=== PATIENT | female | born 1985 | race Caucasian/White ===

== ENCOUNTER 2018-06-23 11:37 | Outpatient (CLI) | payer OTHER, SELFPAY ==
[2018-06-23 12:52] LABS: ALT 21 U/L (12-78); AST 17 U/L (15-37); Albumin 3.9 g/dL (3.4-5.0); Alkaline Phosphatase 45 U/L (46-116); Anion Gap 7.7 mmol/L (3-11); BUN 21 mg/dL (7-18); Bilirubin, Total 0.6 mg/dL (0.2-1.0); CO2 28.3 mmol/L (21.0-32.0); CREATININE 0.85 mg/dL (0.55-1.02); Calcium 8.6 mg/dL (8.5-10.1); Chloride 103 mmol/L (98-107); Glucose 91 mg/dL (70-100); Potassium 4.1 mmol/L (3.5-5.1); Sodium 139 mmol/L (136-145); Total Protein 6.5 g/dL (6.4-8.2)
== END 2018-06-23 11:57 ==
DX: R12 Heartburn (principal); B35.1 Tinea unguium
CPT/HCPCS: 36415; 80053

== ENCOUNTER 2018-11-24 13:44 | Outpatient (REF) | payer OTHER, SELFPAY | END 2018-11-24 14:04 | LOC: LBN 13:44 | DX: R22.1 Localized swelling, mass and lump, neck (principal) | CPT/HCPCS: 87070 ==

== ENCOUNTER 2019-02-07 07:12 | Day surgery (SDC) | payer OTHER, SELFPAY ==
[2019-02-07] VITALS (7 sets, daily range): BP systolic 96–126; BP diastolic 39–73; PULSE 54–67; RESP 10–16; TEMP 36.5–36.6; O2SAT 97–100
--- NOTE | 2019-02-07 07:46 | W.PM.DSUDISC ---
Discharge Plan Disposition Patient Disposition: HOME Condition: Good Discharge Details Attending Provider: Navneet Palmer Primary Care Provider: Marycarmen Cobian Home Meds and New Rx's Prescriptions: No Action triamcinolone acetonide 0.5 % cream 1 applic TP BID Qty: 454 RF: 0 ketoconazole 2 % cream 1 applic TP BID Qty: 60 RF: 2 Adult Probiotic 3 billion cell capsule 3,000 mmu cells PO DAILY RF: 0 multivitamin [Daily Vitamin] 1 EACH tablet 1 ea PO DAILY RF: 0 Mirena 1 EACH intrauterine device 1 ea Intrauterine ONCE Qty: 1 RF: 0 Discharge Instructions Additional Instructions: see sheet Activity:: Activity as Tolerated Remove Dressings/Wound Care:: 24 hours Shower/Bathe:: 24 hours Diet:: As Tolerated DS: Diagnosis Discharge Diagnosis (1) Tonsillolith: Status: Chronic (2) Lesion of tonsil: Status: Acute
[2019-02-07] MEDS: Lactated Ringers 1,000 ML 80 ML IV (08:05)
[2019-02-07] MEDS: Oxymetazolone 0.05% SPRAY 15 ML BTL (09:20)
--- NOTE | 2019-02-07 09:27 | TONSIL_PTH ---
PATIENT: Lesli Schaeffer LOC: [facility] U#:[id number] AGE/SX: 33/F ROOM: RE02/07/[address]: Navneet Palmer DO : 1985 BED: DIS: 02/07/2019 SPEC #: [id number] RECD: 02/07/19 12:43 STATUS: QUINTIN REQ #: [id number] SHARRI: 02/07/19 09:[address]: Navneet Palmer DEPT: Surgical Specimen RECD BY: Karen Latham ENTERED: 02/07/19 12:44 SP TYPE: TONSIL OTHR DR: Marycarmen Cobian APRN Tissues: 1 - TONSIL AGE 17 & OVER 2 - TONSIL AGE 17 & OVER Procedures: GROSS AND MICRO LEVEL 3 Comments: [id number]
[2019-02-07] MEDS: oxyCODONE 5 mg/Acetaminophen 325 mg TAB PO (11:11)
--- NOTE | 2019-02-07 11:40 | ROE_ITS ---
DATE OF PROCEDURE: February 07, 2019 PREOPERATIVE DIAGNOSIS: 1. Left tonsillar superior pole lesion. 2. Chronic tonsil stones. POSTOPERATIVE DIAGNOSIS: Same. PROCEDURE: Tonsillectomy. SURGEON: Navneet Palmer D.O. ANESTHESIA: General. ESTIMATED BLOOD LOSS: 1 cc COMPLICATIONS: None. CONDITION: The patient tolerated the procedure well. FINDINGS: Left superior pole firmness, mucosal changes. INDICATIONS FOR PROCEDURE: This is a pleasant 33-year-old female who presents with a superior pole c hange to the tonsil with firmness to palpation. The decision was made forth to proceed with tonsille ctomy. She has opted to proceed with both being removed and analyzed by Pathology. Risks and compli cations were discussed in detail. Consent was placed in the Chart. PROCEDURE: Patient was brought back to the operating suite in stable condition, placed supine on the operating table, and intubated in normal fashion. The table was rotated 90 degrees. There was no deirdre dence of submucosal clefting or bifid uvula. The McIvor retractor was placed in the oral cavity and s uspended from the German stand. The right tonsil was grasped in the superior pole and medialized. Pinpo int cautery was used to develop the peritonsillar fascial plane, dissection was carried out to the up per and mid portions of the tonsil with final amputation conducted with suction cautery. There was no bleeding within the right tonsillar fossa. Next, the left tonsil was grasped in the superior pole wi th a curved Allis forceps and medialized. Pinpoint cautery was used to develop the peritonsillar fasc ial plane. Dissection was carried out in the plane in the superior and mid portion of the tonsils. Fi nal amputation was conducted with suction cautery without bleeding within left fossa, Valsalva was pe rformed without bleeding. TMJ's were checked and were free of dislocation. Gastric contents suctioned . The patient tolerated the procedure well and went to PACU in stable condition.
== END 2019-02-07 11:55 | disposition home or self-care (01) ==
PROVIDERS: Visit Provider Otolaryngology Otolaryngology/Facial Plastic Surgery
PROC: (CPT 42826; principal; 2019-02-07 08:45)
DX: J35.8 Other chronic diseases of tonsils and adenoids (principal); J35.9 Chronic disease of tonsils and adenoids, unspecified; J35.1 Hypertrophy of tonsils
CPT/HCPCS: 42826; 81025; 88304; J1100; J2250; J2405

== ENCOUNTER 2019-07-06 01:25 | Outpatient (CLI) | payer OTHER, SELFPAY ==
[2019-07-06 11:09] LABS: Absolute Basophil Count 0.04 k/cumm (0.0-0.2); Absolute Eosinophil Count 0.32 k/cumm (0.0-0.7); Absolute Lymphocyte Count 1.73 k/cumm (1.2-3.4); Basophils % 0.7; Eosinophils % 5.8; HCT 39.8 % (36.0-46.0); HGB 13.4 g/dL (12.0-15.5); Lymphocytes % 31.5; Mean Corp. HGB Concentration 33.7 g/dL (32.0-36.0); Mean Corpuscular Hemoglobin 32.8 pg (27.0-33.0); Mean Corpuscular Volume 97.5 fL (80-95); Mean Platelet Volume 10.1 fL (8.0-11.0); Monocytes % 7.3; Neutrophils % 54.7; Platelet Count 181 x1000/uL (130-400); RBC 4.08 m/cumm (4.00-5.20); RBC Distribution Width 11.3 % (11.7-14.6); White Blood Cell Count 5.49 k/cumm (4.4-10.8)
[2019-07-06 12:04] LABS: ALT 24 U/L (14-59); AST 18 U/L (15-37); Albumin 4.1 g/dL (3.4-5.0); Alkaline Phosphatase 40 U/L (46-116); Anion Gap 5.9 mmol/L (3-11); BUN 16 mg/dL (7-18); Bilirubin, Total 0.7 mg/dL (0.2-1.0); CO2 30.1 mmol/L (21.0-32.0); CREATININE 1.16 mg/dL (0.55-1.02); Calcium 8.9 mg/dL (8.5-10.1); Chloride 104 mmol/L (98-107); Estimated GFR 54.49 (mL/min/1.73m2); Glucose 86 mg/dL (74-106); Potassium 4.2 mmol/L (3.5-5.1); Sodium 140 mmol/L (136-145); TSH (W/Ref FT4) 4.02 uIU/mL (0.36-3.74); Total Protein 6.8 g/dL (6.4-8.2)
[2019-07-06 12:20] LABS: FREE T4 0.79 ng/dL (0.76-1.46)
== END 2019-07-06 01:45 ==
PROVIDERS: PCP Internal Medicine; Visit Provider Internal Medicine
DX: R50.9 Fever, unspecified (principal); J31.0 Chronic rhinitis; Z00.00 Encounter for general adult medical examination without abnormal findings
CPT/HCPCS: 36415; 80053; 84439; 84443; 85025

== ENCOUNTER 2019-07-06 14:36 | Outpatient (CLI) | payer OTHER, SELFPAY ==
--- NOTE | 2019-07-06 14:30 | DI.RAD_ITS ---
EXAM: XR SOFT TISSUE NECK INDICATION: left neck discomfort, cervicalgia, M54.2. COMPARISON: No exams were available for comparison TECHNIQUE: 2D digital imaging was performed. FINDINGS: The disc spaces are well maintained. There is no evidence of fracture or subluxation. There is some straightening of the normal cervical lordosis, which could be secondary to muscle spasm. There is n o prevertebral soft tissue swelling. The airway appears intact. The epiglottis and aryepiglottic fo lds appear normal. The visualized portions of the upper lobes appear clear. IMPRESSION: Negative soft tissue neck.
== END 2019-07-06 14:56 ==
PROVIDERS: Visit Provider Internal Medicine
DX: M54.2 Cervicalgia (principal)
CPT/HCPCS: 70360

== ENCOUNTER 2019-07-27 01:36 | Outpatient (CLI) | payer OTHER, SELFPAY ==
[2019-07-27 13:56] LABS: TSH (W/Ref FT4) 3.28 uIU/mL (0.36-3.74)
== END 2019-07-27 01:56 ==
PROVIDERS: Visit Provider Internal Medicine
DX: R79.89 Other specified abnormal findings of blood chemistry (principal)
CPT/HCPCS: 36415; 84443

== ENCOUNTER 2019-12-30 09:40 | Outpatient (CLI) | payer OTHER, SELFPAY ==
[2019-12-31 17:39] LABS: COVID-19 RT-PCR Result NEGATIVE (Negative)
== END 2019-12-30 10:00 ==
DX: Z11.59 Encounter for screening for other viral diseases (principal)
CPT/HCPCS: U0003

== ENCOUNTER 2020-01-31 12:51 | Outpatient (CLI) | payer OTHER, SELFPAY ==
[2020-02-02 07:23] LABS: COVID-19 RT-PCR Result NEGATIVE (Negative)
== END 2020-01-31 13:11 ==
DX: R11.0 Nausea (principal); Z11.59 Encounter for screening for other viral diseases
CPT/HCPCS: U0003

== ENCOUNTER 2021-07-20 12:15 | Emergency (ER) | payer OTHER, SELFPAY ==
--- NOTE | 2021-07-20 12:15 | RT.EKG_ITS ---
APPROVED REPORT Exam: Resting ECG Reason for Exam: sob/chest pain Patient Location: E HR:78 bpm ECG Measurements Heart Rate 78 AXIS RI 137 P 57 QRSd 115 QRS 69 QT 405 T 6 QTc 463 Conclusion Sinus rhythm...normal P axis, V-rate 60- 99 Nonspecific intraventricular conduction delay...QRSd >115mS, not LBBB/RBBB. Sinus. No STEMI. I have reviewed and interpreted ECG and agree with software generated interpretation.
--- NOTE | 2021-07-20 12:16 | W.ED.GENAD ---
Discharge Plan Disposition Patient Disposition: HOME Condition: Improving Discharge Details Clinical Impression: Chronic chest pain, Right-sided chest pain Primary Care Provider: Sergio Castillo ED Provider: Janet Mancilla Home Meds and New Rx's Prescriptions: Continued triamcinolone acetonide 0.5 % cream 1 applic TP BID PRN (Reason: dermatitis) Qty: 60 RF: 5 pantoprazole 20 mg tablet,delayed release (DR/EC) 20 mg PO DAILY Qty: 30 RF: 0 diphenhydramine HCl [Benadryl Allergy] 25 mg tablet 50 mg PO QHS PRNRF: 0 fexofenadine [Fiordaliza Allergy] 180 mg tablet 180 mg PO DAILY RF: 0 Mirena 1 EACH intrauterine device 1 ea Intrauterine ONCE Qty: 1 RF: 0 Discharge Instructions Instructions: Chest Pain (ED), Chronic Pain (ED) Additional Instructions: Your lab work, EKGs and imaging today is reassuring and does not note evidence of acute abnormal findings. Drink plenty of fluids and get plenty of rest. Follow-up with your primary care doctor in 1 week for reevaluation and for referral for outpatient stress test or upper endoscopy if your symptoms do not improve or worsen and are indicated for further evaluation. Return to the emergency department with any worsening or new concerning symptoms. Discharge Data Discharge Physician: Janet Mancilla Medical Decision Making 35-year-old female with a history of chronic right-sided chest pain for the past 4 years after a bronchitis infection presents with worsening right-sided chest pain while trying groceries today. EKG notes a rate of 78, sinus, no STEMI and nondiagnostic. Vitals within normal limits. Patient appears anxious but nontoxic. Her right chest is nontender to palpation without rash, trauma or cellulitis. Discussed with patient that unclear if her right-sided chest pain today is related to her chronic right-sided chest pain but for today's purposes and her pain at times worse with deep breath, will obtain screening labs, CT chest to rule out PE. She is PERC negative. We will give a dose of Pepcid, IV fluids and Toradol and reassess. Labs and imaging reviewed. Normal white blood cell count at 5. Hemoglobin 11. Normal electrolytes. Troponin negative. CT chest reviewed and negative. Repeat troponin negative. Repeat EKG unchanged. Patient reassessed and she remained improved and feels comfortable going home. Advised to follow-up with her PCP for reevaluation. Usual and customary return precautions given prior to discharge. Medical Records Medical records reviewed: Yes I reviewed the patient's medical records. Imaging Data Radiologic Study: Radiologist's impression: CTA Chest With Contrast Exam date and time: 07/20/2021 2:13 PM Age: 35 years old Clinical indication: Pain; Right-sided; Patient HX: R/O acute pe, pneumonia TECHNIQUE: Imaging protocol: Computed tomographic angiography of the chest with contrast. 3D rendering (Not supervised by radiologist): MIP and/or 3D reconstructed images were created by the technologist. Radiation optimization: All CT scans at this facility use at least one of these dose optimization techniques: automated exposure control; mA and/or kV adjustment per patient size (includes targeted exams where dose is matched to clinical indication); or iterative reconstruction. Contrast material: OMNIPAQUE 350; Contrast volume: 100 ml; Contrast route: INTRAVENOUS (IV); COMPARISON: CR XR SOFT TISSUE NECK 07/06/2019 2:49 PM FINDINGS: Pulmonary arteries: Normal. No pulmonary emboli. Aorta: Unremarkable. No aortic aneurysm. No aortic dissection. Lungs: Unremarkable. No consolidation. No masses. Pleural spaces: Unremarkable. No pneumothorax. No pleural effusion. Heart: Unremarkable. No cardiomegaly. No pericardial effusion. Lymph nodes: Unremarkable. No enlarged lymph nodes. Bones/joints: Unremarkable. No acute fracture. Soft tissues: Unremarkable. IMPRESSION: No evidence for pulmonary embolus. Lab Data Lab results reviewed: Yes I reviewed the patient's lab results. Labs: Laboratory Tests Range/Units 07/20/21 07/20/21 13:00 13:00 WBC (4.4-10.8) 10^3/uL 5.67 RBC (3.93-5.22) 10^6/uL 3.46 L Hgb (11.2-15.7) g/dL 11.0 L Hct (36.0-46.0) % 32.4 L MCV (80-95) fL 93.6 MCH (27.0-33.0) pg 31.8 MCHC (32.0-36.0) % 34.0 RDW (11.7-14.6) % 12.2 Plt Count (130-400) 10^3/uL 172 MPV (8.0-11.0) fL 10.2 Immature Gran % 0.2 Neutrophils % 60.1 Lymphocytes % 31.0 Monocytes % 5.5 Eosinophils % 2.3 Basophils % 0.9 Nucleated RBC % % 0 Absolute Neutrophils (1.2-6.7) 10^3/uL 3.41 Absolute Lymphocytes (1.2-3.4) 10^3/uL 1.76 Absolute Monocytes (0.1-0.8) 10^3/uL 0.31 Absolute Eosinophils (0.0-0.7) 10^3/uL 0.13 Absolute Basophils (0.0-0.2) 10^3/uL 0.05 Sodium (136-145) mmol/L 139 Potassium (3.5-5.1) mmol/L 3.5 Chloride (98-107) mmol/L 103 Carbon Dioxide (21.0-32.0) mmol/L 25.5 Anion Gap (3-11) mmol/L 10.5 BUN (7-18) mg/dL 15 Creatinine (0.55-1.02) mg/dL 1.0 Estimated GFR/1.73 m2 (mL/min/1.73m2) >= 60.00 Glucose (74-106) mg/dL 149 H Calcium (8.5-10.1) mg/dL 9.0 Magnesium (1.8-2.4) mg/dL 1.8 Total Bilirubin (0.2-1.0) mg/dL 0.7 AST (15-37) U/L 19 ALT (14-59) U/L 27 Alkaline Phosphatase (46-116) U/L 40 L Troponin I (<0.06) ng/mL < 0.05 Total Protein (6.4-8.2) g/dL 6.7 Albumin (3.4-5.0) g/dL 4.1 ECG Data Attestation: I personally reviewed and interpreted this ECG (s) as follows: Interpretation: Rate of 78, sinus, T wave inversion in lead III. No STEMI. AR 150. QTc 461. HPI General Mode of arrival: ambulatory. Date/Time Provider Initiated Documentation: 07/20/21 12:15. Limitations to Documentation: no limitations. Information obtained by: patient. HPI Narrative: Patient is a 35-year-old female with a history of recently diagnosed GERD on pantoprazole, with a history of right-sided chest pain for the past 4 years after a bronchitis infection presents for worsening of her right-sided chest pain today while carrying groceries. Patient states she was treated with antibiotics for bronchitis infection 4 years ago and states she has had chronic constant right-sided chest pain since then. She describes the pain as a chronic dull ache which is a 1/10. She states today she was carrying groceries which was not heavier than she normally would carry and states the pain increased to a 4/10. She states she had some shortness of breath with this. She denies any fever, cough, nausea, vomiting or dizziness. She has not taken medication for pain. She states she recently saw her PCP and was diagnosed with GERD and started on pantoprazole. She does admit that sometimes there is a component to her pain which is worse with eating but otherwise denies any known aggravating or alleviating factors. Related Data Home Medications Medication Instructions Recorded Confirmed Mirena 1 ea INTRAUTERINE ONCE #1 implant 05/05/14 07/20/21 diphenhydramine HCl 25 mg tablet 50 mg PO QHS PRN tab 07/06/19 07/20/21 fexofenadine 180 mg tablet 180 mg PO DAILY 07/06/19 07/20/21 triamcinolone acetonide 0.5 % 1 applic TP BID PRN #60 gm 12/07/19 07/20/21 topical cream pantoprazole 20 mg tablet,delayed 20 mg PO DAILY #30 tab 07/17/21 07/20/21 release Previous Rx's Medication Instructions Recorded triamcinolone acetonide 0.5 % 1 applic TP BID PRN #60 gm 12/07/19 topical cream pantoprazole 20 mg tablet,delayed 20 mg PO DAILY #30 tab 07/17/21 release Allergies Allergy/AdvReac Type Severity Reaction Status Date / Time black flies Allergy Intermediate Uncoded 07/20/21 12:28 NICKEL SULFATE Allergy Unknown RASH Uncoded 07/20/21 12:28 Review of Systems All systems reviewed & are unremarkable except as noted in HPI and below Constitutional Constitutional: Reports as per HPI, Denies chills and Denies fever(s) Eyes Eyes: Denies blurry vision ENT Ears, Nose, Mouth, and Throat: Denies dizziness, Denies sore throat and Denies throat swelling Cardiovascular Cardiovascular: Reports chest pain and Denies dyspnea Respiratory Respiratory: Denies cough and Denies dyspnea Gastrointestinal Gastrointestinal: Denies abdominal pain, Denies diarrhea and Denies vomiting Genitourinary Genitourinary: Denies hematuria and Denies dysuria Musculoskeletal Musculoskeletal: Denies back pain and Denies numbness Integumentary/Breasts Skin/Breast: Denies lesions and Denies rash Neurologic Neurologic: Denies dizziness, Denies localized weakness and Denies numbness Allergic/Immunologic Allergic/Immunologic: Denies throat swelling [facility] Active Problem List (Updated 07/20/21 @ 16:41 by Janet Mancilla DO) Chronic chest pain (Acute) Right-sided chest pain (Acute) Right hip pain (Acute) Allergic rhinitis due to allergen (Acute) Dry skin dermatitis (Acute) Neck pain (Acute) Deviated nasal septum (Acute) Hypertrophy of inferior nasal turbinate (Acute) Chronic rhinitis (Acute) Heartburn (Chronic 11/18/17) Dystrophic nail (Chronic 11/18/17) Medical History (Updated 07/20/21 @ 16:41 by Janet Mancilla DO) Dislocation of shoulder region H/O allergy to insect bites Rectocele (12/08/13) [facility] Surgical History (Updated 07/17/21 @ 09:24 by Sergio Castillo NP) History of shoulder surgery Hx of adenoidectomy tubes placed at that time at 5yrs old MENISCUS REPAIR 07/10/11; LEFT KNEE RIGHT SHOULDER LABRAL REPAIR; 04/16/06 [place] teeth extracted Family History (Updated 07/19/21 @ 16:34 by Paige Rhoades) Mother Depression Alcohol abuse Diabetes Hyperlipidemia Father Hyperlipidemia Paternal Grandmother Lung cancer Brother History of substance abuse Sister Substance abuse Alcohol abuse Depression Sister No problems noted. Paternal Grandmother , 79 Lung cancer bilateral transplants Smoker Son No problems noted. Paternal Grandfather Hyperlipidemia Social History (Updated 07/19/21 @ 16:33 by Paige Rhaodes) Smoking/Tobacco Use Status: Never Second Hand Exposure: Yes Smoking risk assessment performed?: Yes Alcohol Intake: current Alcohol Intake frequency: holidays/special occasions only Alcohol type: wine and hard liquor Drug use: Occasionally Substance use type: marijuana Household members: spouse Housing: apartment Do you need help understanding health information?: Never current occupation: DENTAL HYGIENIST Pets and animals: Yes Pets and animals: cat(s) and dog(s) Sexually active: Yes Do you think of yourself as: straight/heterosexual Current gender identity: female What is your relationship status?: How often do you talk on the phone with friends or family?: once per week How often do you get together with friends or relatives?: once per week Do you belong to any clubs or organized social groups?: no Panel score (0-1 are the most socially isolated patients): 1 What type of physical activity do you participate in: none Duration: 30-45 minutes/day Roxanna/Mandaeism: Nondenominational Special roxanna needs: No Seatbelt use: always Helmet use: Yes Helmet use: always Drive intox or ride w/intox 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 In current or past relationships, have you been: made to feel afraid Do you feel safe at home: Yes Do you feel safe in your relationship?: Yes Victim of physical abuse: No Victim of emotional abuse: Yes Victim of sexual abuse: No Would you like helpful sources: No Exam Const General: cooperative, healthy appearing and no acute distress HENMT Head: normal to inspection Face and sinus: normal facial exam Eyes General: appearance normal, both eyes and all related structures EOM: EOM intact bilaterally Neck Neck: normal visual inspection and No submandibular swelling Lymphatic: no lymphadenopathy noted Chest Chest: normal inspection of the chest and no tenderness Resp Effort & Inspection: normal respiratory effort and able to speak in complete sentences Auscultation: clear to auscultation bilaterally Cardio Rate: regular rate Rhythm: regular rhythm GI Inspection: normal to inspection Palpation: soft, not firm, not rigid and nontender Auscultation: normal bowel sounds Skin General skin exam: no rashes or lesions noted Neuro General: patient alert, patient awake and patient oriented x3 Cognition: normal cognition Speech: speech normal Motor: muscle tone normal throughout Sensory Exam: no sensory deficits noted Extrem General: normal to inspection, full ROM, capillary refill normal, no calf tenderness bilaterally and no edema Psych Appearance: grossly normal Mental Status: mental status grossly normal Speech and Movement: speech and movement normal Affect: normal affect
[2021-07-20 12:23] VITALS: BP 129/76; PULSE 86; RESP 12; TEMP 36.4; O2SAT 100
--- NOTE | 2021-07-20 13:00 | DI.CT_ITS ---
Exam(s) CT CHEST PE CTA EXAM: CT CHEST PE CTA CLINICAL HISTORY: R sided chest pain, r/o acute PE, pneumonia. TECHNIQUE: Imaging Protocol: CT angiography of the chest was performed using pulmonary embolus jessy col. Multi planar reconstructions were performed. CONTRAST MATERIAL: Intravenous: Omnipaque 350 Contrast volume: 100 cc COMPARISON: No exams were available for comparison FINDINGS: CHEST: PULMONARY ARTERIES: There are no intraluminal filling defects to suggest acute pulmonary emboli. LUNGS: There are no infiltrates nor evidence of pulmonary infarction.. There are no pleural effusions . MEDIASTINUM: There is no hilar nor mediastinal adenopathy. Visualized thyroid unremarkable. CARDIAC: Heart size is upper normal. There is no pericardial effusion.Caliber of the thoracic aorta is within normal limits. There is no significant shift of the interventricular septum. PARTIALLY VISUALIZED UPPERMOST ABDOMEN: No obvious findings OSSEOUS: No significant osseous lesions.. IMPRESSION: 1. No evidence of acute pulmonary emboli. No evidence of pulmonary infarction.No pleural effusions. 2. No infiltrates. No intrathoracic adenopathy. RADIATION DOSE DELIVERED: 432.89mGy.cm Total DLP DATA REPOSITORY: All CT scans at this facility are submitted to the National Radiology Data Registry (NRDR) Dose Index Registry (DIR) with the [employer] ([employer]). RADIATION OPTIMIZATION: All CT scans at this facility use at least one of these dose optimization te chniques: automated exposure control; mA and/or kV adjustment per patient size (includes targeted exa ms where dose is matched to clinical indication); or iterative reconstruction.
[2021-07-20 13:09] LABS: Abs Immature Grans 0.01 10^3/uL (0.0-0.06); Absolute Basophil Count 0.05 10^3/uL (0.0-0.2); Absolute Eosinophil Count 0.13 10^3/uL (0.0-0.7); Absolute Lymphocyte Count 1.76 10^3/uL (1.2-3.4); Absolute Monocyte Count 0.31 10^3/uL (0.1-0.8); Absolute Neutrophil Count 3.41 10^3/uL (1.2-6.7); Basophils % 0.9; Eosinophils % 2.3; HCT 32.4 % (36.0-46.0); Immature Grans % 0.2; MCH 31.8 pg (27.0-33.0); MCV 93.6 fL (80-95); MPV 10.2 fL (8.0-11.0); Monocytes % 5.5; Neutrophils % 60.1; Nucleated RBC 0 %; Platelet Count 172 10^3/uL (130-400); RBC 3.46 10^6/uL (3.93-5.22); RDW 12.2 % (11.7-14.6); RDW-SD 42.1 fL; WBC 5.67 10^3/uL (4.4-10.8)
[2021-07-20 13:30] VITALS: RESP 16
[2021-07-20] MEDS: Normal Saline 1,000 ML 1000 ML IV (13:32)
[2021-07-20] MEDS: Ketorolac 30 MG/ML VIAL IVP (13:32)
[2021-07-20 13:34] LABS: ALT 27 U/L (14-59); AST 19 U/L (15-37); Albumin 4.1 g/dL (3.4-5.0); Alkaline Phosphatase 40 U/L (46-116); Anion Gap 10.5 mmol/L (3-11); BUN 15 mg/dL (7-18); Bilirubin, Total 0.7 mg/dL (0.2-1.0); CO2 25.5 mmol/L (21.0-32.0); Chloride 103 mmol/L (98-107); Glucose 149 mg/dL (74-106); Magnesium 1.8 mg/dL (1.8-2.4); Potassium 3.5 mmol/L (3.5-5.1); Sodium 139 mmol/L (136-145); Total Protein 6.7 g/dL (6.4-8.2)
[2021-07-20 13:41] LABS: Troponin I < 0.05 ng/mL (<0.06)
[2021-07-20] MEDS: Omnipaque 350 MG/ML 100 ML BTL IJ (14:10)
[2021-07-20] MEDS: Normal Saline Flush 10 ML SYR IVP (14:11)
[2021-07-20 14:30] VITALS: PULSE 80; RESP 11; O2SAT 100
--- NOTE | 2021-07-20 14:39 | DI.VRAD_ITS ---
PROCEDURE INFORMATION: Exam: CTA Chest With Contrast Exam date and time: 07/20/2021 2:13 PM Age: 35 years old Clinical indication: Pain; Right-sided; Patient HX: R/O acute pe, pneumonia TECHNIQUE: Imaging protocol: Computed tomographic angiography of the chest with contrast. 3D rendering (Not supervised by radiologist): MIP and/or 3D reconstructed images were created by the technologist. Radiation optimization: All CT scans at this facility use at least one of these dose optimization techniques: automated exposure control; mA and/or kV adjustment per patient size (includes targeted exams where dose is matched to clinical indication); or iterative reconstruction. Contrast material: OMNIPAQUE 350; Contrast volume: 100 ml; Contrast route: INTRAVENOUS (IV); COMPARISON: CR XR SOFT TISSUE NECK 07/06/2019 2:49 PM FINDINGS: Pulmonary arteries: Normal. No pulmonary emboli. Aorta: Unremarkable. No aortic aneurysm. No aortic dissection. Lungs: Unremarkable. No consolidation. No masses. Pleural spaces: Unremarkable. No pneumothorax. No pleural effusion. Heart: Unremarkable. No cardiomegaly. No pericardial effusion. Lymph nodes: Unremarkable. No enlarged lymph nodes. Bones/joints: Unremarkable. No acute fracture. Soft tissues: Unremarkable. IMPRESSION: No evidence for pulmonary embolus. Dictated and Authenticated by: Genie Clark MD. Ordering:DERREK Gonzales MD
[2021-07-20 14:40] VITALS: PULSE 78; RESP 14; O2SAT 100
--- NOTE | 2021-07-20 15:30 | RT.EKG_ITS ---
APPROVED REPORT Exam: Resting ECG Reason for Exam: chest pain Patient Location: E HR:63 bpm ECG Measurements Heart Rate 63 AXIS MD 158 P 46 QRSd 115 QRS 61 QT 451 T 2 QTc 461 Conclusion Sinus rhythm...normal P axis, V-rate 60- 99 Nonspecific intraventricular conduction delay...QRSd >115mS, not LBBB/RBBB. Sinus. No STEMI. I have reviewed and interpreted ECG and agree with software generated interpretation.
[2021-07-20 16:05] VITALS: BP 124/70; PULSE 80; RESP 14; O2SAT 99
[2021-07-20 16:56] LABS: Troponin I < 0.05 ng/mL (<0.06)
[2021-07-20 17:13] VITALS: BP 124/70; PULSE 80; RESP 14; O2SAT 99
== END 2021-07-20 17:14 | disposition home or self-care (01) ==
PROVIDERS: Emergency Provider Physician Assistant; PCP Nurse Practitioner Family
DX: R07.89 Other chest pain (principal); G89.29 Other chronic pain; R06.02 Shortness of breath
CPT/HCPCS: 36415; 71275; 80053; 81025; 93005; 96361; 96365; 96375; 99285; 83735; 84484; 85025; 93010; J1885; J3490

== ENCOUNTER 2022-07-23 10:21 | Outpatient (CLI) | payer OTHER, SELFPAY ==
[2022-07-23 12:21] LABS: Abs Immature Grans 0.01 10^3/uL (0.0-0.06); Absolute Basophil Count 0.05 10^3/uL (0.0-0.2); Absolute Eosinophil Count 0.23 10^3/uL (0.0-0.7); Absolute Monocyte Count 0.37 10^3/uL (0.1-0.8); Absolute Neutrophil Count 2.22 10^3/uL (1.2-6.7); Basophils % 1.1; Eosinophils % 5.1; HCT 36.1 % (36.0-46.0); HGB 11.6 g/dL (11.2-15.7); Immature Grans % 0.2; Lymphocytes % 35.7; MCHC 32.1 % (32.0-36.0); MCV 90 fL (80-95); MPV 11.2 fL (8.0-11.0); Monocytes % 8.3; Neutrophils % 49.6; Platelet Count 155 10^3/uL (130-400); RDW 14.5 % (11.7-14.6); RDW-SD 48.3 fL; WBC 4.48 10^3/uL (4.4-10.8)
[2022-07-23 12:40] LABS: Iron 159 ug/dL (50-170); Total Iron Binding Capacity 384 ug/dL (250-450)
[2022-07-23 12:46] LABS: Ferritin 10 ng/mL (8-252)
[2022-07-23 13:38] LABS: Hemoglobin A1C 5.5 % (<5.7)
[2022-07-24 09:52] LABS: Transferrin 305 mg/dL (201-352)
== END 2022-07-23 10:22 | disposition home or self-care (01) ==
LOC: LOS 10:24
PROVIDERS: PCP Nurse Practitioner Family; Visit Provider Nurse Practitioner Family
DX: D64.9 Anemia, unspecified (principal); Z13.1 Encounter for screening for diabetes mellitus
CPT/HCPCS: 36415; 82728; 83036; 83540; 83550; 84466; 85025

== ENCOUNTER → 2022-08-19 12:30 | Outpatient (BNVA) | payer OTHER, SELFPAY | PROVIDERS: PCP Nurse Practitioner Family; Referring Provider Nurse Practitioner Family; Visit Provider Surgery | DX: K64.9 Unspecified hemorrhoids (principal); Z87.19 Personal history of other diseases of the digestive system | CPT/HCPCS: 99214; 99242 ==

== ENCOUNTER → 2022-11-04 07:25 | Outpatient (BNVA) | payer OTHER, SELFPAY | PROVIDERS: PCP Nurse Practitioner Family; Referring Provider Nurse Practitioner Family; Visit Provider Surgery | DX: R10.11 Right upper quadrant pain (principal) | CPT/HCPCS: 99203; 99213 ==

== ENCOUNTER 2022-11-11 01:38 | Outpatient (CLI) | payer OTHER, SELFPAY ==
--- NOTE | 2022-11-11 06:30 | DI.NM_ITS ---
Exam(s) NM HEPATOBILIARY CCK GRP EXAM: NM HEPATOBILIARY CCK GRP CLINICAL HISTORY: Nausea,Vomiting,diarrhea after eating fat,RUQ ABD PAIN,R10.11. TECHNIQUE: Injected dose: 5 mCi Tc-99 mebrofenin Initial dynamic images: 60 minutes Post-Gallbladder fillin.2 mcg of CCK was administered according to protocol. The patient reporte d right upper quadrant pain and nausea consistent with prior concern. Addition images: According to protocol. COMPARISON: US US ABDOMEN LIMITED from 10/16/2022 FINDINGS: Normal hepatic transit time. Prompt excretion into the small bowel. Prompt excretion into the gallbladder. The gallbladder ejection fraction is 22 percent. (Normal gre ater than 40 percent). IMPRESSION: 1. Abnormal gallbladder ejection fraction which can be seen with gallbladder dyskinesia. SN guidelines: Gallbladder visualization should be present by 3 hours. Delayed lnllslg-ab-nurmx mac sit beyond 60 min raises the suspicion for partial common bile duct (CBD) obstruction. Gallbladder ejection fraction <35% has a good correlation with acalculous disease (i.e., chronic acal culous cholecystitis, cystic duct syndrome, sphincter of Oddi disease).
[2022-11-11] MEDS: Sincalide 5 MCG VIAL 1.2 MCG IJ (11:29)
== END 2022-11-11 01:58 ==
LOC: DI 01:38
PROVIDERS: PCP Nurse Practitioner Family; Visit Provider Surgery
DX: R10.11 Right upper quadrant pain (principal); R11.2 Nausea with vomiting, unspecified; K82.8 Other specified diseases of gallbladder
CPT/HCPCS: 78227; J2805

== ENCOUNTER → 2022-11-14 07:21 | Outpatient (BNVA) | payer OTHER, SELFPAY | PROVIDERS: PCP Nurse Practitioner Family; Referring Provider Nurse Practitioner Family; Visit Provider Surgery | DX: K82.8 Other specified diseases of gallbladder (principal) | CPT/HCPCS: 99212; 99214 ==

== ENCOUNTER 2022-12-03 06:09 | Day surgery (SDC) | payer OTHER, SELFPAY ==
[2022-12-03] VITALS (11 sets, daily range): BP systolic 106–120; BP diastolic 58–77; PULSE 47–63; RESP 14–20; TEMP 36.3–37; O2SAT 98–100; BMI 27.6
[2022-12-03] MEDS: Celecoxib 200 MG CAP PO (06:38)
[2022-12-03] MEDS: Gabapentin 300 MG CAP 600 MG PO (06:39)
[2022-12-03] MEDS: Acetaminophen 500 MG TAB 1000 MG PO (06:39)
[2022-12-03] MEDS: Lactated Ringers 1,000 ML 80 ML IV (06:50)
--- NOTE | 2022-12-03 06:51 | ROE_ITS ---
Date of service: 12/03/22 Time of Service: 08:21 Operative Note Operative Note DATE OF PROCEDURE: 12/03/22 PRE-OP DIAGNOSIS: Biliary Dyskinesia POST-OP DIAGNOSIS: same PROCEDURE: Laparoscopic Cholecystectomy SURGEON: Oralia Butler BUTADIENE CONVERTER OPERATOR: Vijaya Kearney ANESTHESIA TYPE: Local By Surgeon and General LMA/ETT Refer to Anesthesia Record PATHOLOGY: other (Gallbladder) COMPLICATIONS: None Patient was transported to: PACU Patient's condition: stable Indications: Lesli is a pleasant 37-year-old female who unfortunately had an abnormal HIDA scan.? We reviewed the surgery in detail using a pamphlet with pictures.? I also reviewed the complications.? I reviewed with her reasons that I would go from laparoscopic to open.? We also discussed postoperative recovery.? I do recommend that she has 2 weeks off after surgery to allow her some healing time prior to going back to work.? Risks, benefits, complications were reviewed with the patient in the office.? Complications include but are not limited to bleeding, infection, injury to stomach, small bowel and large bowel, injury to the pancreas, injury to the common bile duct necessitating drainage and referral to tertiary center for repair, bile leak, adverse reactions to the medications, complications of intubation including a sore throat or injury to the uvula, [place], stroke and even .? Questions were entertained and answered to her satisfaction and she wished to proceed.? No guarantees were given or implied.? The patient appeared to understand all of the complications discussed with her. Procedure Description: After informed consent was obtained the patient was brought to the operating room, placed in a supine position and monitors were applied. SCDs were applied to her lower extremities and she was placed under general anesthesia and intubated without difficulty. Her abdomen was then prepped and draped in a sterile fashion using ChloraPrep. At this point a timeout was done and the patient's name, date of , procedure type, allergies to medications, metal in her body, antibiotic and DVT prophylaxis, and fire risk was assessed. Next 0.25% Bupivocaine was injected just above the umbilicus into the dermis and subcutaneous tissue. A 5 mm incision was made with an 11 blade. The skin next to the incision was grasped with penetrating towel clamps and while pulling up on the skin a 5 mm port was placed under direct visualization. The bowel and mesentary was inspected. No bowel injuries were noted. The abdomen was insuflated and then 3 more ports were placed. A 12 mm port was placed in the subxiphoid area and two 5 mm ports were placed in the right upper quadrant. The liver was inspected and looked normal. The patient's bed was then turned to the left and her head was brought up. The gallbladder was grasped at the body and pushed towards the right shoulder, this allowed me to visualize the neck of the gallbladder. The neck was grasped and pulled towards the right flank and down allowing me to visualize the lymph node. Using a [place] dissector with cautery the lymph node was gently dissected away from the tissues and the fatty tissue was also dissected away. The cystic duct was identified it was normal in size. The duct was dissected 360 degrees using the [place] dissector in order for me to visualize its entrance into the gallbladder. Liver was noted behind it. There were no other structures right behind. Critical view was achieved. 3 clips were placed one proximal and 2 distal and the cystic duct was cut. The cystic artery was then identified and dissected 360 degrees. It was located just medial to the cystic duct. It was visualized going into the gallbladder. Once dissected 3 more clips were placed one proximal and 2 distal and the artery was cut. Using the hook dissector the gallbladder was then dissected away from the liver bed and placed into an Endo Catch bag and pulled through the 12 mm port site. The 12 mm port was placed back into the abdomen under direct visualization. The liver bed was inspected no bleeding was noted. The abdomen was then irrigated with a liter of normal saline until the effluent was clear. Once all the fluid was suctioned out, 20 cc of the Bupivocaine was injected above the liver to help with her post operative right shoulder pain. The 12 mm and the 2 right upper quadrant ports were removed under direct visualization and no bleeding was noted from the fascia. The abdomen was deflated completely and lastly the umbilical port was removed. The skin was cleaned and the incisions were closed with 4-0 Vicryl. The skin was dried and skin affix was applied over the closed incisions. Needle, instrument and sponge counts were correct at the end of the case. At this point the patient was woken up, extubated and taken back to recovery in stable condition. There were no immediate complications.
--- NOTE | 2022-12-03 06:52 | W.PM.DSUDISC ---
Date of service: 12/03/22 Time of Service: 10:52 Discharge Plan Disposition Patient Disposition: Home Condition: Stable Discharge Details Reason For Visit: Biliary Cholic Attending Provider: Oralia Butler Primary Care Provider: Sergio Castillo Home Meds and New Rx's Prescriptions: New tramadol 50 mg tablet 50 mg PO Q6H PRNQty: 14 0RF Continued triamcinolone acetonide 0.5 % cream 1 applic TP BID PRN (Reason: dermatitis) Qty: 60 5RF multivitamin Tablet 1 tab PO DAILY pantoprazole 20 mg tablet,delayed release (DR/EC) 20 mg PO DAILY Qty: 90 3RF All Day Allergy (cetirizine) 10 mg capsule 10 mg PO DAILY PRN Mirena 1 EACH intrauterine device 1 ea Intrauterine ONCE Qty: 1 Discharge Instructions Additional Instructions: Activity at Home after surgery: 1. Make sure you walk outside at least 4 times per day 2. You should be able to climb a flight of stairs 3. No driving while in pain or taking pain medications 4. No strenuous activity or heavy lifting for 2 weeks (laparoscopic surgery) Diet, Nutrition, & wound healin. Avoid alcohol until after you are recovered from your surgery 2. Make sure to eat plenty of lean protein (meat, fish, eggs, cottage cheese, beans) 3. Eat a variety of fruits and vegetables. Eat plenty of high fiber foods to avoid constipation. 4. Drink plenty of liquids to stay hydrated and avoid constipation Pain Medications: 1. Tylenol 650mg every 6 hours as needed and Ibuprofen 600 mg every 6 hours as needed. You may alternate between the 2 medications every 3 hours 2. If a narcotic has been prescribed take as directed only for breakthrough pain For Constipation: 1. Take Milk of Magnesia or MiraLax as needed for constipation Other: 1. You may shower daily. Do not scrub the incisions 2. Do not soak the incisions for 1 week 3. You may alternate ice and heat as needed for pain and swelling Wound Care: 1. Keep the incisions clean and dry Please call our office if you develop: 1. Fevers >101.5 2. Nausea or Vomiting 3. Worsening pain 4. Redness and thick discharge from the wounds If after hours please call the Hospital at and ask to speak to the on-call surgeon Referrals: Oralia Butler MD [ [facility] STAFF PHYSICIAN] - 12/16/22 7:30 am Activity:: see above Shower/Bathe:: 24 hours Diet:: low fat Discharge Orders Discharge Orders: Discharge Order (Routine); Ordered 12/03/22 Ordered By: Oralia Butler
--- NOTE | 2022-12-03 06:58 | W.ANESPRE ---
General Info Date of Service Date Performed: 12/03/22 Height: 5 ft 6 in Weight: 77.6 kg Body Mass Index (BMI): 27.6 Surgical Procedure: Operation Date: 12/03/22 07:40 Proposed Procedure Side Surgeon p Cholecystectomy Laparoscopic Oralia Butler MD Meds Allergies and Home Medications Allergies Allergy/AdvReac Type Severity Reaction Status Date / Time black flies Allergy Intermediate Swelling/Ed Uncoded 12/03/22 06:42 saadia NICKEL SULFATE Allergy Unknown RASH Uncoded 12/03/22 06:42 Home Medication Medication Instructions Recorded levonorgestrel 21 mcg/24 hours (8 1 ea intrauterine ONCE #1 implant 05/05/14 yrs) 52 mg intrauterine device (Mirena) triamcinolone acetonide 0.5 % 1 applic topical BID PRN 12/07/19 topical cream dermatitis #60 grams multivitamin 1 tab PO DAILY 07/23/22 pantoprazole 20 mg tablet,delayed 20 mg PO DAILY #90 tabs 10/22/22 release cetirizine 10 mg capsule (All Day 10 mg PO DAILY PRN 11/04/22 Allergy (cetirizine)) Current Visit Medications: Current Medications Generic Name Dose Route Start Last Admin Trade Name Freq PRN Reason Stop Dose Admin Acetaminophen 1,000 mg 12/03/22 06:00 12/03/22 06:39 Acetaminophen 500 Mg Tab PO 12/03/22 23:59 1,000 mg PREOP GIL Administration Celecoxib 200 mg 12/03/22 06:00 12/03/22 06:38 Celecoxib 200 Mg Cap PO 12/03/22 23:59 200 mg PREOP GIL Administration Gabapentin 600 mg 12/03/22 06:00 12/03/22 06:39 Gabapentin 300 Mg Cap PO 12/03/22 23:59 600 mg PREOP GIL Administration Ringer's Solution 1,000 mls @ 80 mls/hr 12/03/22 06:00 12/03/22 06:50 IV 12/14/22 23:59 80 mls/hr INFUSION GIL Administration Cefazolin Sodium/Dextrose 2 gm in 50 mls @ 100 mls/hr 12/03/22 06:00 Ancef Duplex IVPB 12/03/22 23:59 PREOP GIL Ondansetron HCl 4 mg/ Sodium 52 mls @ 200 mls/hr 12/03/22 06:54 Chloride IVPB Q6H PRN PRN IV Miscellaneous Supplies 1 each 12/03/22 06:00 Iv Access IV 12/14/22 23:59 DIRECTED GIL Sodium Chloride 0 ml 12/03/22 06:00 Normal Saline Flush 10 Ml Syr IV 12/14/22 23:59 PRN PRN Sodium Chloride 0 ml 12/03/22 06:00 Normal Saline 10 Ml Vial IJ 12/14/22 23:59 DIRECTED PRN Sterile Water 0 ml 12/03/22 06:00 Water,Injection,Sterile 10 Ml Vial IJ 12/14/22 23:59 DIRECTED PRN Tramadol HCl 50 mg 12/03/22 06:54 Tramadol 50 Mg Tab PO Q6H PRN PRN Pain PFSH Active Problems Active Problems: Problem Status Onset Code Dystrophic nail 11/18/17 L60.3 Heartburn 11/18/17 R12 Encounter for insertion of intrauterine contraceptive device Z30.430 Hypertrophy of inferior nasal turbinate J34.3 Deviated nasal septum J34.2 Dry skin dermatitis L85.3 Allergic rhinitis due to allergen J30.9 Right hip pain M25.551 Right-sided chest pain R07.9 History of anal fissures Z87.19 Right upper quadrant abdominal pain R10.11 Biliary dyskinesia K82.8 Medical History Medical History Dislocation of shoulder region H/O allergy to insect bites Rectocele (12/08/13) [facility] Surgical History Surgical History History of shoulder surgery Hx of adenoidectomy tubes placed at that time at 5yrs old Hx of tonsillectomy MENISCUS REPAIR 07/10/11; LEFT KNEE RIGHT SHOULDER LABRAL REPAIR; 04/16/06 [place] teeth extracted Tobacco Smoking/Tobacco Use Status: Never Passive smoking exposure: Yes Second hand exposure: Yes Alcohol Alcohol Intake: current Alcohol intake frequency: holidays/special occasions only Alcohol type: wine and hard liquor Substance Use Substance use: Rarely Substance use type: marijuana Vital Signs and Lab Results Vital Signs Most Recent Vital Signs in EMR: Most Recent Vital Signs Temp Pulse Resp BP Pulse Ox 36.9 C 63 18 120/63 99 12/03/22 06:15 12/03/22 06:15 12/03/22 06:15 12/03/22 06:15 12/03/22 06:15 Point of Care Results Point of Care Results: POC- Test(urine) Negative 12/03/22 06:30 Lab Results Blood Type / Crossmatch: No Data to Display Complete Blood Count: No Data to Display Complete Metabolic Panel: No Data to Display Liver Function Panel: No Data to Display Coagulation Panel: No Data to Display Cardiac Panel: No Data to Display Arterial Blood Gas: No Data to Display Venous Blood Gas: No Data to Display Pancreas Panel: No Data to Display Thyroid Panel: No Data to Display Infectious Disease: No Data to Display Blood Cultures: No Data to Display Toxicology Panel: No Data to Display Panel: No Data to Display Imaging and Studies Imaging and Studies Study information below may be from another EMR and interpreted by another provider. Please see original notes in EMR for more complete details. EKG Summary: Conclusion Sinus rhythm...normal P axis, V-rate 60- 99 Nonspecific intraventricular conduction delay...QRSd >115mS, not LBBB/RBBB. Anesthesia Assessment and Plan Anesthesia History Personal History: No History of Anesthesia Complications Family History: No Family History of Anesthesia Complications Exercise Tolerance Exercise Tolerance: Metabolic Equivalents>4 Pertinent Negatives Pertinent Negatives: No Symptoms of GERD Cardiac & Pulmonary Exam Cardiac Exam: Normal S1/S2 Heart Sounds Pulmonary Exam: Clear Bilateral Breath Sounds Implantable Cardiac Device Does patient have a Pacemaker or an ICD?: No Airway Exam Known Difficult Airway: No Mallampati Class: 1 Mouth Opening: Normal (> 3cm) Thyromental Distance: Greater than 3 cm Neck Range of Motion: Full ROM Neck Circumference: Normal Teeth Condition: Normal Dentition ASA Classification ASA Score: ASA 2 Emergency Case?: No NPO Status NPO Status: NPO Clears >2 hours, Solids >8 hours Status Status: Not Relevant due to Medical History Anesthesia Plan Resuscitation Status: Full Code Anesthesia Technique: General Anesthesia Airway Planned: Endotracheal Tube Monitors Used: Standard Monitors
--- NOTE | 2022-12-03 07:21 | W.PM.PROGNOT ---
Date of Service Date of service: 12/03/22 Time of Service: 07:21 Assessment and Plan Assessment and plan (1) Biliary dyskinesia: Status: Acute Assessment and plan: Mrs Schaeffer is a pleasant 37-year-old female who I saw in the office for abdominal pain. Ultrasound was negative for cholecystitis but her HIDA scan was abnormal. I discussed the surgery with her again today. We reviewed the risks, benefits and complications. Risks, benefits, complications were reviewed with the patient in the office. Complications include but are not limited to bleeding, infection, injury to stomach, small bowel and large bowel, injury to the pancreas, injury to the common bile duct necessitating drainage and referral to tertiary center for repair, bile leak, adverse reactions to the medications, complications of intubation including a sore throat or injury to the uvula, [place], stroke and even . Questions were entertained and answered to her satisfaction. She had a good understanding of the complications and she wished to proceed. No guarantees were given or implied. Proceed with Lap. Rosalinda possible open Subjective Subjective Interval history since last seen: Mrs Schaeffer is here today for a Laparoscopic Cholecystectomy. She is doing well. No new complaints Exam Resp Effort & Inspection: normal respiratory effort Auscultation: clear to auscultation bilaterally Cardio Rate: regular rate Rhythm: regular rhythm Objective Last Vital Signs Temp 98.4 F 12/03/22 06:15 Pulse 63 12/03/22 06:15 Resp 18 12/03/22 06:15 BP 120/63 12/03/22 06:15 Pulse Ox 99 12/03/22 06:15 Time Spent with Patient Time Spent with Patient: <25 minutes Time was spent: counseling the patient
[2022-12-03] MEDS: ceFAZolin 2 GM/50 ML BAG IVPB (07:25)
--- NOTE | 2022-12-03 08:10 | GB_PTH ---
PATIENT: Lesli Schaeffer LOC: [facility] U#:[id number] AGE/SX: 37/F ROOM: RE12/03/[address]: Oralia Butler MD : [id number] BED: DIS: 12/03/2022 SPEC #: [id number] RECD: 12/03/22 12:38 STATUS: QUINTIN REQ #: [id number] SHARRI: 12/03/22 08:[address]: Oralia Butler DEPT: Surgical Specimen RECD BY: Karen Latham ENTERED: 12/03/22 12:39 SP TYPE: GB OTHR DR: Sergio Castillo, OJ Tissues: 1 - GALLBLADDER Procedures: GROSS AND MICRO LEVEL 3 Comments: [id number]
[2022-12-03] MEDS: Bupivacaine 0.25% Pres-Free 30 ML VIAL (08:25)
[2022-12-03] MEDS: fentaNYL 100 MCG/2 ML VIAL IVP ×2 (09:19→09:25)
--- NOTE | 2022-12-03 10:53 | PGE_ITS ---
Date of Service Date of service: 12/03/22 Time of Service: 10:53 Assessment and Plan Assessment and plan (1) S/P laparoscopic cholecystectomy: Assessment and plan: Lesli is doing well a few hours postoperatively Discussed low fat diet Discussed weight limitations Call with questions or concerns. Call if you develop fvers, chills, increasing pain, redness or thick discharge from the incisions (2) Biliary dyskinesia: Status: Acute Subjective Subjective Interval history since last seen: Patient seen in [facility]. She is doing well. minimal pain at the subxiphoid incision. Vitals are stable and she has tolerated some po Exam GI Inspection: incision (c/d/i) Palpation: soft, no hepatosplenomegaly and tender (appropriately tender around the incisions) Objective Last Vital Signs Temp 97.9 F 12/03/22 10:23 Pulse 55 L 12/03/22 10:23 Resp 18 12/03/22 10:23 BP 115/59 L 12/03/22 10:23 Pulse Ox 100 12/03/22 10:23 Time Spent with Patient Time Spent with Patient: <25 minutes Time was spent: indepentently interpreting results and counseling the patient
--- NOTE | 2022-12-03 10:55 | W.ANESPOSTOP ---
Postoperative Evaluation Date, Time and Location Date Performed: 12/03/22 Time Performed: 09:45 Patient Location: PACU Vital Signs Most Recent Imported Vital Signs: Most Recent Vital Signs Temp Pulse Resp BP Pulse Ox 36.6 C 55 L 18 115/59 L 100 12/03/22 10:23 12/03/22 10:23 12/03/22 10:23 12/03/22 10:23 12/03/22 10:23 Pain Score Most Recent Pain Score: Most Recent Pain Score Pain Level 1 12/03/22 10:23 Assessment Mental Status: Awake (Alert & Oriented to Patient Baseline) Airway and Respiratory Function: Patent airway with normal (patient baseline) respiratory exam Cardiovascular Function: Hemodynamically Stable Hydration Status: Adequately Hydrated Nausea & Vomiting: No Nausea or Vomiting Pain: Pt. Denies Any Pain Peripheral Nerve Block: Patient did not receive a nerve block
== END 2022-12-03 06:10 | disposition home or self-care (01) ==
PROVIDERS: PCP Nurse Practitioner Family; Visit Provider Surgery
PROC: 0FT44ZZ Resection of Gallbladder, Percutaneous Endoscopic Approach (ICD-10-PCS; CPT 47562; principal; 2022-12-03 07:30)
DX: K81.1 Chronic cholecystitis
CPT/HCPCS: 47562; 81025; 88304; J0690; J1100; J1885; J2405; J3010

== ENCOUNTER → 2022-12-23 07:34 | Outpatient (BNVA) | payer OTHER, SELFPAY | PROVIDERS: PCP Nurse Practitioner Family; Referring Provider Nurse Practitioner Family; Visit Provider Surgery | DX: Z48.815 Encounter for surgical aftercare following surgery on the digestive system (principal); Z90.49 Acquired absence of other specified parts of digestive tract | CPT/HCPCS: 99212 ==

== ENCOUNTER 2022-12-31 09:55 | Day surgery (SDC) | payer OTHER, SELFPAY ==
--- NOTE | 2022-12-31 06:45 | ENDO_ITS ---
Date of service: 12/31/22 Time of Service: 11:42 Endoscopy Report DATE OF PROCEDURE: 12/31/22 PRE-OP DIAGNOSIS: bloating, heart burn POST-OP DIAGNOSIS: other (bile reflux, gastritis) PROCEDURE: EGD with biopsies SURGEON: Oralia Butler ANESTHESIA TYPE: General:No Airway ESTIMATED BLOOD LOSS: 2 PATHOLOGY: other (duodenal, stomach and GE junction bx) COMPLICATIONS: None DISPOSITION: same day INDICATIONS: Unfortunately Lesli still has increase in burping, bloating and dysphagia.? She does have a history of GERD and is being treated with pantoprazole 20 mg daily.? We discussed that her increased symptoms may be due to bile reflux which cannot be treated with increase in her antacids.? I think the most reasonable thing is to go ahead with an upper endoscopy to look and see what is going on.? Depending on those results she may benefit from some Carafate versus increase in the pantoprazole.? The procedure was discussed in detail.? Risks, benefits and complications have been reviewed. Complications include but are not limited to bleeding, pain, perforation, sore throat, aspiration, and adverse reaction to the medications.? Questions were entertained and answered to their satisfaction.? Patient understood the risks and complications and they wished to proceed. No guarantees were given or implied. PROCEDURE DESCRIPTION: After informed consent was obtained the patient was take to the procedure room and placed in a supine position. Monitors were applied and a time out was done. The patients name, date of , procedure type, allergies to medications and metal in their body was reviewed. A bite block was placed and the patient was sedated. Once sedated and comfortable the gastroscope was advanced through the oropharynx which was grossly normal into the esophagus. The proximal and mid- esophagus were normal. In the distal esophagus there was no inflammation noted. The scope was advanced into the stomach and through the pylorus into the 3rd p ortion of the duodenum. The duodenum was noted to be normal. Biopsies were done. The scope was retracted back into the stomach. There was mild inflammation noted in the stomach and biopsies were done to rule out H. pylori. There were no ulcers. The scope was retroflexed. The cardia and fundus were noted to be normal. There was no hiatal hernia noted. The scope was retracted back into the esophagus and biopsies were done of the GE junction to rule out Hernandez's. The Z line was regular. The GE junction was at 43 cm. The scope was removed and the patient was woken up and taken back to [facility] in stable condition. Follow up: 2 weeks. Add carafate
--- NOTE | 2022-12-31 06:45 | W.PM.PROGNOT ---
Date of Service Date of service: 12/31/22 Time of Service: 11:21 Assessment and Plan Assessment and plan (1) Bloating: Status: Acute Assessment and plan: I discussed the procedure again with Lesli and asked if she had any questions. We reviewed risks, benefits and complications again. She did not have any questions or concerns. She gave me consent to proceed with EGD. Risks, benefits and complications have been reviewed. Complications include but are not limited to bleeding, pain, perforation, sore throat, aspiration, and adverse reaction to the medications. Questions were entertained and answered to their satisfaction and they wished to proceed. No guarantees were given or implied. (2) Heartburn: Status: Chronic Subjective Subjective Interval history since last seen: Lesli is here in same-day surgery today to have an upper endoscopy. She has been having some increased gas and burping. She has not had any new symptoms since I saw her. No nausea or vomiting. Time Spent with Patient Time Spent with Patient: <25 minutes Time was spent: counseling the patient
--- NOTE | 2022-12-31 06:46 | PDOC.DSDIS_ITS ---
Date of service: 12/31/22 Time of Service: 12:47 Discharge Plan Disposition Patient Disposition: Home Condition: Stable Discharge Details Reason For Visit: bloating, heart burn Attending Provider: Oralia Butler Primary Care Provider: Sergio Castillo Home Meds and New Rx's Prescriptions: New sucralfate [Carafate] 1 gram tablet 1 g PO Q6H 14 Days Qty: 56 0RF Rx Instructions: Take 30 minutes before meals and at bedtime Continued triamcinolone acetonide 0.5 % cream 1 applic TP BID PRN (Reason: dermatitis) Qty: 60 5RF multivitamin Tablet 1 tab PO DAILY pantoprazole 20 mg tablet,delayed release (DR/EC) 20 mg PO DAILY Qty: 90 3RF All Day Allergy (cetirizine) 10 mg capsule 10 mg PO DAILY PRN Mirena 1 EACH intrauterine device 1 ea Intrauterine ONCE Qty: 1 Discharge Instructions Instructions: Gastritis (DC) Additional Instructions: Findings: inflammation in the stomach, most likely from bile Follow up: 2 weeks Medications: carafate 1 gm, take 1 tab 30 minutes before meals and at bedtime Please call if you develop: fevers >101.5 Nausea or Vomiting Abdominal pain that is not transient Rectal bleeding that is more then a tbsp A hard abdomen and inability to pass gas DAY SURGERY UNIT POST ENDOSCOPY INSTRUCTIONS Instructions for everyone who is given Anesthesia: For your safety, please do the following for the next 24 Hours: a. Do not drive or operate dangerous equipment b. Do not drink alcohol beverages or use any recreational drugs for the first 24 hours or while taking pain medications. The medications in your body may have a reaction that can be dangerous. c. Do not make any important decisions or sign any important papers 1. Generally there are no restrictions on your activity after a day or so has gone by, but you may feel a bit fatigued for a few days. 2. After you arrive home you may have a light meal and return to a normal diet as you can tolerate it without feeling sick to your stomach. 3. After surgery, you may feel pain or discomfort. This should be only transient, but if it persists please contact your doctor. 4. If there are any questions regarding the findings of your procedure, please feel free to contact your doctor. 6. If you are unable to contact your doctor with a problem, contact the hospital at [phone]. 7. Continue all your regular medications unless directed otherwise. I understand the above instructions and have no questions. Signature of Patient or Responsible Adult Escort Date/Time Name of Responsible Adult Escort Signature of Nurse Date/Time Stand Alone Forms: Anesthesia Discharge Inst.Avril (DSU) Referrals: Oralia Butler MD [ [facility] STAFF PHYSICIAN] - 01/13/23 2:00 pm Activity:: Activity as Tolerated Diet:: As Tolerated Discharge Orders Discharge Orders: Discharge Order (Routine); Ordered 12/31/22 Ordered By: Oralia Butler DS: Diagnosis Discharge Diagnosis (1) Gastritis: Status: Acute Asessment and Plan: Patient is seen and examined after their endoscopy. Patient has minimal sore throat. They have been able to tolerate liquids. They do not have any Nausea or Vomiting. They are not having any chest pain or shortness of breath. They have been able to pass gas and are not having any abdominal pain or distention. they have not vomited any blood. The vital signs have been stable-see nursing notes. We discussed findings on their endoscopy We reviewed the importance of lifestyle modifications- see diet recommendations We reviewed any new medications that the patient may be prescribed- see medicine reconciliation. Patient will either be sent a letter with the biopsy results or follow up in the office- see discharge instructions Patient was given explicit instructions for emergency follow up post endoscopy- see discharge instructions Patient verbalized understanding and was discharged in stable and satisfactory condition. See nursing notes. (2) Bloating: Status: Acute (3) Heartburn: Status: Chronic
[2022-12-31 10:06] VITALS: BP 119/70; PULSE 59; RESP 18; TEMP 36; O2SAT 100
[2022-12-31] MEDS: Lactated Ringers 1,000 ML 80 ML IV (10:34)
--- NOTE | 2022-12-31 10:36 | ANES.PREOP_ITS ---
General Info Date of Service Date Performed: 12/31/22 Height: 5 ft 6 in Weight: 74.843 kg Body Mass Index (BMI): 26.6 Surgical Procedure: Operation Date: 12/31/22 11:35 Proposed Procedure Side Surgeon p Gastroscopy Oralia Butler MD Meds Allergies and Home Medications Allergies Allergy/AdvReac Type Severity Reaction Status Date / Time black flies Allergy Intermediate Swelling/Ed Uncoded 12/31/22 10:17 saadia NICKEL SULFATE Allergy Unknown RASH Uncoded 12/31/22 10:17 Home Medication Medication Instructions Recorded levonorgestrel 21 mcg/24 hours (8 1 ea intrauterine ONCE #1 implant 05/05/14 yrs) 52 mg intrauterine device (Mirena) triamcinolone acetonide 0.5 % 1 applic topical BID PRN 12/07/19 topical cream dermatitis #60 grams multivitamin 1 tab PO DAILY 07/23/22 pantoprazole 20 mg tablet,delayed 20 mg PO DAILY #90 tabs 10/22/22 release cetirizine 10 mg capsule (All Day 10 mg PO DAILY PRN 11/04/22 Allergy (cetirizine)) Current Visit Medications: Current Medications Generic Name Dose Route Start Last Admin Trade Name Freq PRN Reason Stop Dose Admin Ringer's Solution 1,000 mls @ 80 mls/hr 12/31/22 10:45 12/31/22 10:34 IV 01/30/23 10:44 80 mls/hr INFUSION GIL Administration Ondansetron HCl 4 mg 12/31/22 06:47 Ondansetron 4 Mg/2 Ml Vial IVP 01/30/23 06:46 Q4H PRN PRN Nausea / Vomiting PFSH Active Problems Active Problems: Problem Status Onset Code Bloating R14.0 Dystrophic nail 11/18/17 L60.3 Heartburn 11/18/17 R12 Encounter for insertion of intrauterine contraceptive device Z30.430 Hypertrophy of inferior nasal turbinate J34.3 Deviated nasal septum J34.2 Dry skin dermatitis L85.3 Allergic rhinitis due to allergen J30.9 Right hip pain M25.551 Right-sided chest pain R07.9 History of anal fissures Z87.19 Medical History Medical History Dislocation of shoulder region H/O allergy to insect bites Rectocele (12/08/13) [facility] Surgical History Surgical History History of shoulder surgery Hx of adenoidectomy tubes placed at that time at 5yrs old Hx of tonsillectomy MENISCUS REPAIR 07/10/11; LEFT KNEE RIGHT SHOULDER LABRAL REPAIR; 04/16/06 S/P laparoscopic cholecystectomy [place] teeth extracted Tobacco Smoking/Tobacco Use Status: Never Passive smoking exposure: Yes Second hand exposure: Yes Alcohol Alcohol Intake: current Alcohol intake frequency: holidays/special occasions only Alcohol type: wine and hard liquor Substance Use Substance use: Rarely Substance use type: marijuana Vital Signs and Lab Results Vital Signs Most Recent Vital Signs in EMR: Most Recent Vital Signs Temp Pulse Resp BP Pulse Ox 36.0 C L 59 L 18 119/70 100 12/31/22 10:06 12/31/22 10:06 12/31/22 10:06 12/31/22 10:06 12/31/22 10:06 Lab Results Blood Type / Crossmatch: No Data to Display Complete Blood Count: No Data to Display Complete Metabolic Panel: No Data to Display Liver Function Panel: No Data to Display Coagulation Panel: No Data to Display Cardiac Panel: No Data to Display Arterial Blood Gas: No Data to Display Venous Blood Gas: No Data to Display Pancreas Panel: No Data to Display Thyroid Panel: No Data to Display Infectious Disease: No Data to Display Blood Cultures: No Data to Display Toxicology Panel: No Data to Display Panel: No Data to Display Imaging and Studies Imaging and Studies Study information below may be from another EMR and interpreted by another provider. Please see original notes in EMR for more complete details. EKG Summary: Conclusion Sinus rhythm...normal P axis, V-rate 60- 99 Nonspecific intraventricular conduction delay...QRSd >115mS, not LBBB/RBBB. Anesthesia Assessment and Plan Anesthesia History Personal History: No History of Anesthesia Complications Family History: No Family History of Anesthesia Complications Exercise Tolerance Exercise Tolerance: Metabolic Equivalents>4 Pertinent Negatives Pertinent Negatives: No Symptoms of GERD (mild), No Major Cardiovascular Symptoms or Complaints and No Major Pulmonary Symptoms or Complaints Cardiac & Pulmonary Exam Cardiac Exam: Normal S1/S2 Heart Sounds Pulmonary Exam: Clear Bilateral Breath Sounds Implantable Cardiac Device Does patient have a Pacemaker or an ICD?: No Airway Exam Known Difficult Airway: No Mallampati Class: 1 Mouth Opening: Normal (> 3cm) Thyromental Distance: Greater than 3 cm Neck Range of Motion: Full ROM Neck Circumference: Normal Teeth Condition: Normal Dentition ASA Classification ASA Score: ASA 2 Emergency Case?: No NPO Status NPO Status: NPO Clears >2 hours, Solids >8 hours Status Status: Negative HCG Anesthesia Plan Resuscitation Status: Full Code Anesthesia Technique: General Anesthesia Airway Planned: Natural Airway Monitors Used: Standard Monitors
[2022-12-31 10:37] VITALS: BMI 26.6
--- NOTE | 2022-12-31 11:33 | STOM_PTH ---
PATIENT: Lesli Schaeffer LOC: [facility] U#:[id number] AGE/SX: 37/F ROOM: RE12/31/[address]: Oralia Butler MD : 1985 BED: DIS: 12/31/2022 SPEC #: [id number] RECD: 12/31/22 13:10 STATUS: QUINTIN REQ #: [id number] SHARRI: 12/31/22 11:[address]: Oralia Butler DEPT: Surgical Specimen RECD BY: Karen Latham ENTERED: 12/31/22 13:12 SP TYPE: STOMACH OTHR DR: Sergio Castillo, GREY WASHER Tissues: 1 - BIOPSY BOWEL 2 - STOMACH BIOPSY 3 - STOMACH BIOPSY 4 - ESOPHAGUS BIOPSY Procedures: GROSS AND MICRO LEVEL 4 Comments: [id number]
[2022-12-31 11:44] VITALS: BP 121/63; PULSE 78; RESP 17; TEMP 36.4; O2SAT 98
--- NOTE | 2022-12-31 12:02 | W.ANESPOSTOP ---
Postoperative Evaluation Date, Time and Location Date Performed: 12/31/22 Time Performed: 12:02 Patient Location: Day Surgery Unit Vital Signs Most Recent Imported Vital Signs: Most Recent Vital Signs Temp Pulse Resp BP Pulse Ox 36.4 C L 78 17 121/63 98 12/31/22 11:44 12/31/22 11:44 12/31/22 11:44 12/31/22 11:44 12/31/22 11:44 Pain Score Most Recent Pain Score: Most Recent Pain Score Pain Level 0 12/31/22 11:44 Assessment Mental Status: Awake (Alert & Oriented to Patient Baseline) Airway and Respiratory Function: Patent airway with normal (patient baseline) respiratory exam Cardiovascular Function: Hemodynamically Stable Hydration Status: Adequately Hydrated Nausea & Vomiting: No Nausea or Vomiting Pain: Pt. Denies Any Pain Peripheral Nerve Block: Patient did not receive a nerve block
[2022-12-31 12:15] VITALS: BP 116/74; PULSE 56; RESP 17; TEMP 36.6; O2SAT 99
== END 2022-12-31 12:55 | disposition home or self-care (01) ==
PROVIDERS: PCP Nurse Practitioner Family; Visit Provider Surgery
PROC: 0DJ68ZZ Inspection of Stomach, Via Natural or Artificial Opening Endoscopic (ICD-10-PCS; CPT 43235; principal; 2022-12-31 11:30)
DX: R14.0 Abdominal distension (gaseous) (principal); K29.70 Gastritis, unspecified, without bleeding; R13.10 Dysphagia, unspecified; R12 Heartburn; K22.89 Other specified disease of esophagus
CPT/HCPCS: 43239; 81025; 88305

== ENCOUNTER → 2023-01-13 13:54 | Outpatient (BNVA) | payer OTHER, SELFPAY | PROVIDERS: PCP Nurse Practitioner Family; Referring Provider Nurse Practitioner Family; Visit Provider Surgery | DX: K29.70 Gastritis, unspecified, without bleeding (principal) ==

== ENCOUNTER 2023-04-01 13:29 | Outpatient (REF) | payer OTHER, SELFPAY ==
--- NOTE | 2023-04-01 13:10 | PAPFT_PTH ---
PATIENT: Lesli Schaeffer LOC: [facility] U#:[id number] AGE/SX: 37/F ROOM: RE04/01/[address]: Lily Jacobs NP : 1985 BED: DIS: 04/01/2023 SPEC #: [id number] RECD: 04/02/23 18:30 STATUS: QUINTIN RETwyla #: [id number] SHARRI: 04/01/23 13:[address]: Lily Jacobs NP DEPT: [facility] Cytology RECD BY: Tiff Vela ENTERED: 04/02/23 18:31 SP TYPE: PAPFT OTHR DR: Sergio Castillo NP Tissues: 1 - CX/ENDOCX FOR PAP SMEARS Procedures: PAP THIN PREP/UVM Screening HPV DNA PROBE Comments: [id number]
== END 2023-04-01 13:30 | disposition home or self-care (01) ==
LOC: LBN 13:29
PROVIDERS: PCP Nurse Practitioner Family; Visit Provider Nurse Practitioner Women's Health
DX: Z12.4 Encounter for screening for malignant neoplasm of cervix (principal); Z11.51 Encounter for screening for human papillomavirus (HPV)
CPT/HCPCS: 88142; 87624

== ENCOUNTER 2023-07-19 09:07 | Emergency (ER) | payer OTHER, SELFPAY ==
[2023-07-19] VITALS (10 sets, daily range): BP systolic 111–135; BP diastolic 55–79; PULSE 53–76; RESP 18; TEMP 36.6; O2SAT 99
--- NOTE | 2023-07-19 09:45 | DI.CT_ITS ---
Exam(s) CT ABDOMEN PELVIS W EXAM: CT ABDOMEN PELVIS W CLINICAL HISTORY: RLQ pain. TECHNIQUE: Imaging Protocol: Axial computed tomography images with coronal and sagittal reformatted images were created and reviewed CONTRAST MATERIAL: Intravenous: Omnipaque-350 100cc Oral: None COMPARISON: CT CT CHEST PE CTA from 07/20/2021 FINDINGS: VISUALIZED LUNG BASES: No nodules nor pleural effusions evident. ABDOMEN: There is no ascites. LIVER: There are no focal hepatic lesions evident. No dilated intrahepatic ducts. GALLBLADDER/BILIARY: Gallbladder is surgically absent. CBD is not dilated. PANCREAS: No evidence of pancreatic mass nor dilatation of the pancreatic duct. SPLEEN: Spleen is not enlarged. No obvious intrasplenic lesions. Splenic and portal veins are paten t. ADRENALS: There are no significant adrenal masses. KIDNEYS:No cysts evident. No solid renal masses. No calculi nor hydronephrosis.. ABDOMINAL AORTA: Abdominal aorta is not enlarged. LYMPH NODES:There is no retroperitoneal nor paraaortic adenopathy. ABDOMINAL WALL: No evidence of significant anterior abdominal wall nor inguinal hernia. GI: There is no evidence of bowel obstruction, free air, nor abscess. PELVIS: GI: The appendix is straightened and exhibits diameter of 7-8 mm. No appendicular lith identified wi thin the lumen. Some mild Viri fats streaking is noted.No evidence of sigmoid diverticulitis. LYMPH NODES: There is no intrapelvic nor inguinal adenopathy. REPRODUCTIVE: Uterus size normal. Follicular cysts are noted in both ovaries ranging up to 1.5 cm si ze. URINARY BLADDER: Mild uniform thickening of the urinary bladder wall may reflect cystitis. No mass n or calculi within the lumen. OSSEOUS: No fractures and no significant osseous lesions. IMPRESSION: 1. Findings are consistent with early appendicitis. No evidence of rupture or abscess. 2. Gallbladder surgically absent. The biliary tree is not dilated. RADIATION DOSE DELIVERED: Total DLP DATA REPOSITORY: All CT scans at this facility are submitted to the National Radiology Data Registry (NRDR) Dose Index Registry (DIR) with the [employer] (ACR). RADIATION OPTIMIZATION: All CT scans at this facility use at least one of these dose optimization te chniques: automated exposure control; mA and/or kV adjustment per patient size (includes targeted exa ms where dose is matched to clinical indication); or iterative reconstruction.
--- NOTE | 2023-07-19 09:52 | ED.GENADUL_ITS ---
Discharge Plan Disposition Patient Disposition: Home Condition: Good Discharge Details Clinical Impression: Abdominal pain Primary Care Provider: Sergio Castillo ED Provider: Lyndsey Swartz Home Meds and New Rx's Prescriptions: No Action triamcinolone acetonide 0.5 % cream 1 applic TP BID PRN (Reason: dermatitis) Qty: 60 5RF multivitamin Tablet 1 tab PO DAILY ferrous sulfate 27 mg iron tablet 27 mg PO DAILY All Day Allergy (cetirizine) 10 mg capsule 10 mg PO DAILY PRN Discharge Instructions Instructions: Abdominal Pain (ED) Additional Instructions: Tylenol and ibuprofen over the counter as needed for pain; follow the directions on the bottle. Please come to the hospital tomorrow to have your blood drawn. Keep your visit with surgery at 0930 tomorrow. It is possible this is an early appendicitis- it is very important that you return to the emergency department if your symptoms worsen- worsening pain, vomiting, fever, or if you have any other concerns. Referrals: Sergio Castillo, PARKING ENFORCEMENT OFFICER [Primary Care Provider] - Medical Decision Making 37yo F with hx of pelvic floor dysfunction presenting for RLQ x several months which has been intermittent and mild, since yesterday evening more constant, 4/10 in severity. Vital signs and physical exam reassuring, well appearing, abdomen with slight RLQ tenderness with no peritoneal signs. Not septic. Low suspicion for acute ovarian pathology, torsion, ectopic, etc; patient declines pelvic exam at this time. Tylenol and toradol for pain. Exam overall reassuring but given persistent pain after shared decision making elected to proceed with CT imaging. Labs reviewed as below, CBC reassuring with no leukocytosis, CMP with no actionable abnormalities, UA not suggestive of infection. Not . CT independently reviewed, no obstruction on my view, discussed with radiologist with concern for early appendicitis (radiology read below), no ovarian cysts or masses. On reassessment she reports her pain has significantly improved, now is mild, abdominal exam remains overall reassuring with minimal RLQ tenderness. Given dose of IV zosyn, discussed with surgeon document control specialist Dr. Mondragon who evaluated patient (see their note for details); given overall reassuring exam, plan to reassess and trend CBC. Patient would prefer discharge home and followup tomorrow morning vs observation stay which is not unreasonable. Strict return precautions were reviewed. Discharged home; discharge instructions including return precautions were reviewed with patient who verbalized understanding. All questions were answered and they are in full agreement with the plan. Medical Records Medical records reviewed: Yes I reviewed the patient's medical records. 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 No other evidence of acute abnormality identified within the abdomen or pelvis. Lab Data Lab results reviewed: Yes I reviewed the patient's lab results. Labs: Laboratory Tests Range/Units 07/19/23 07/19/23 09:22 10:15 WBC (4.4-10.8) 10^3/uL 7.53 RBC (3.93-5.22) 10^6/uL 3.95 Hgb (11.2-15.7) g/dL 12.7 Hct (36.0-46.0) % 37.5 MCV (80-95) fL 95 MCH (27.0-33.0) pg 32.2 MCHC (32.0-36.0) % 33.9 RDW (11.7-14.6) % 11.9 Plt Count (130-400) 10^3/uL 171 MPV (8.0-11.0) fL 10.5 Immature Gran % 0.4 Neutrophils % 69.8 Lymphocytes % 20.1 Monocytes % 5.7 Eosinophils % 3.3 Basophils % 0.7 Nucleated RBC % (0.0-0.3) % 0.0 Absolute Neutrophils (1.2-6.7) 10^3/uL 5.26 Absolute Lymphocytes (1.2-3.4) 10^3/uL 1.51 Absolute Monocytes (0.1-0.8) 10^3/uL 0.43 Absolute Eosinophils (0.0-0.7) 10^3/uL 0.25 Absolute Basophils (0.0-0.2) 10^3/uL 0.05 Sodium (136-145) mmol/L 139 Potassium (3.5-5.1) mmol/L 3.7 Chloride (98-107) mmol/L 103 Carbon Dioxide (21.0-32.0) mmol/L 25.7 Anion Gap (3-11) mmol/L 10.3 BUN (7-18) mg/dL 19 H Creatinine (0.55-1.02) mg/dL 0.9 Est GFR (CKD-EPI 2020) (mL/min/1.73m2) 85.50 Glucose (74-106) mg/dL 96 Calcium (8.5-10.1) mg/dL 9.1 Total Bilirubin (0.2-1.0) mg/dL 0.8 AST (15-37) U/L 19 ALT (14-59) U/L 26 Alkaline Phosphatase (46-116) U/L 54 Total Protein (6.4-8.2) g/dL 7.3 Albumin (3.4-5.0) g/dL 4.0 Beta HCG, Quant (1-3) mIU/mL < 1 L Urine Color (Yellow) Yellow Urine Clarity (Clear) Clear Urine pH (5-8) 6.0 Ur Specific [place] (1.005-1.025) 1.010 Urine Protein (Negative) mg/dL Negative Urine Ketones (Negative) mg/dL Negative Urine Blood (Negative) Trace-intact H Urine Nitrite (Negative) Negative Urine Bilirubin (Negative) Negative Urine Urobilinogen (Up to 0.2) mg/dL 0.2 Ur Leukocyte Esterase (Negative) Trace H Urine RBC (0-2) HPF 0-2 Urine WBC (0-5) HPF 5-10 Ur Epithelial Cells (Negative) HPF Moderate Urine Crystals (Negative) HPF Negative Urine Bacteria (Negative) HPF Rare Urine Casts (Negative) LPF Negative Urine Mucus (Negative) Negative Ur Culture Indicated? No/Sq. Contamination Urine Glucose (Negative) mg/dL Negative HPI General Mode of arrival: ambulatory . Date/Time Provider Initiated Documentation: 07/19/23 09:16 . Limitations to Documentation: no limitations . Information obtained by: patient and old records reviewed . HPI Narrative: 37yo F with hx of pelvic floor dysfunction presenting for RLQ x several months. Has been intermittent and mild, since yesterday evening more constant, 4/10 in severity. Last had tylenol yesterday evening, no pain medication since then. No nausea, vomiting, or diarrhea. Normal bowel movement this morning. No dysuria, hematuria, or unusual vaginal discharge. LMP 1 week ago, normal for he r. She is otherwise in her usual state of health with no fevers, chills, rash, lightheadness, chest pain, shortness of breath, or other concerns. Related Data Home Medications Medication Instructions Recorded Confirmed triamcinolone acetonide 0.5 % 1 applic topical BID PRN 12/07/19 07/19/23 topical cream dermatitis #60 grams multivitamin 1 tab PO DAILY 07/23/22 07/19/23 cetirizine 10 mg capsule (All Day 10 mg PO DAILY PRN 11/04/22 07/19/23 Allergy (cetirizine)) ferrous sulfate 27 mg iron tablet 27 mg PO DAILY 05/06/23 07/19/23 Previous Rx's Medication Instructions Recorded triamcinolone acetonide 0.5 % 1 applic topical BID PRN 12/07/19 topical cream dermatitis #60 grams Allergies Allergy/AdvReac Type Severity Reaction Status Date / Time black flies Allergy Intermediate Swelling/Ed Uncoded 07/19/23 09:14 saadia NICKEL SULFATE Allergy Unknown RASH Uncoded 07/19/23 09:14 General Stated Complaint: Abd Prob JONATHAN: 3 Review of Systems Narrative: see HPI PFSH All Active Problems (Updated 07/19/23 @ 13:25 by Sophia Mondragon DO) History of COVID-19 (Acute) Chronic pelvic pain in female (Acute) RLQ abdominal pain (Acute) Right ear pain (Acute) Gastritis (Acute) Bloating (Acute) Dystrophic nail (Chronic 11/18/17) Heartburn (Chronic 11/18/17) Hypertrophy of inferior nasal turbinate (Acute) Deviated nasal septum (Acute) Dry skin dermatitis (Acute) Allergic rhinitis due to allergen (Acute) Right hip pain (Acute) Right-sided chest pain (Acute) History of anal fissures (Acute) Medical History Dislocation of shoulder region H/O allergy to insect bites Rectocele (12/08/13) [facility] Surgical History History of shoulder surgery Hx of adenoidectomy tubes placed at that time at 5yrs old Hx of tonsillectomy MENISCUS REPAIR 07/10/11; LEFT KNEE RIGHT SHOULDER LABRAL REPAIR; 04/16/06 S/P laparoscopic cholecystectomy [place] teeth extracted Family History Mother Depression Alcohol abuse Diabetes Hyperlipidemia Father Hyperlipidemia Paternal Grandmother Lung cancer Brother History of substance abuse Sister Substance abuse Alcohol abuse Depression Sister No problems noted. Paternal Grandmother , 79 Lung cancer bilateral transplants Smoker Son No problems noted. Paternal Grandfather Hyperlipidemia Social History Smoking/Tobacco Use Status: Never Second Hand Exposure: Yes Smoking risk assessment performed?: Yes Alcohol Intake: current Alcohol Intake frequency: holidays/special occasions only Alcohol type: wine and hard liquor Drug use: Rarely Substance use type: marijuana Caregiver/Support person: No Household members: spouse Housing: apartment Communication Needs: Corrective Lenses Do you need help understanding health information?: Never current occupation: DENTAL HYGIENIST Pets and animals: Yes Pets and animals: cat(s) and dog(s) Sexually active: Yes Do you think of yourself as: straight/heterosexual Current gender identity: female What is your relationship status?: How often do you talk on the phone with friends or family?: once per week How often do you get together with friends or relatives?: once per week How often do you attend zoroastrianism or sabianism services?: decline to answer Do you belong to any clubs or organized social groups?: no Panel score (0-1 are the most socially isolated patients): 1 What type of physical activity do you participate in: walking Duration: 45-60 minutes/day Frequency: 3-4 times per week Roxanna/Druze: Nondenominational Special roxanna needs: No Seatbelt use: always Helmet use: Yes Helmet use: always Drive intox or ride w/intox rickshaw driver: No Do you feel safe at home: Yes Do you feel safe in your relationship?: Yes Victim of physical abuse: No Victim of emotional abuse: Yes Victim of sexual abuse: No Would you like helpful sources: No Female Reproductive History Menstrual control method: other (partner with vasectomy) Exam Narrative Exam Narrative: General: Alert, well appearing, well nourished, in no acute distress. Head: Normocephalic, atraumatic Neck: Trachea midline, Neck supple. Cardiac: RRR, no murmurs appreciated Resp: No respiratory distress. CTAB. Abd: Soft, non-distended, slightly tender to RLQ with no rebound or guarding. : No suprapubic tenderness. Extremities: No deformities. No peripheral edema. Neurologic: GCS 15. Moves all extremities freely against gravity Course Vital Signs Vital signs: Vital Signs Temperature 36.6 C 07/19/23 09:11 Pulse 64 07/19/23 09:11 Respiratory Rate 18 07/19/23 09:11 Blood Pressure 131/72 07/19/23 09:11 Pulse Oximetry 99 07/19/23 09:11 Temperature 36.6 C 07/19/23 09:11 Temperature Source Oral 07/19/23 09:11 Pulse 64 07/19/23 09:11 Respiratory Rate 18 07/19/23 09:11 Respiratory Effort Normal 07/19/23 09:15 Blood Pressure 131/72 07/19/23 09:11 Blood Pressure Position Sitting 07/19/23 09:11 Pulse Oximetry 99 07/19/23 09:11 Oxygen Delivery Method Room Air 07/19/23 09:11 Oxygen Flow Rate 0 07/19/23 09:11 Pain Level 4 07/19/23 09:16
[2023-07-19 09:55] LABS: Abs Immature Grans 0.03 10^3/uL (0.0-0.06); Absolute Basophil Count 0.05 10^3/uL (0.0-0.2); Absolute Eosinophil Count 0.25 10^3/uL (0.0-0.7); Absolute Lymphocyte Count 1.51 10^3/uL (1.2-3.4); Absolute Monocyte Count 0.43 10^3/uL (0.1-0.8); Absolute Neutrophil Count 5.26 10^3/uL (1.2-6.7); Basophils % 0.7; Eosinophils % 3.3; HCT 37.5 % (36.0-46.0); HGB 12.7 g/dL (11.2-15.7); Immature Grans % 0.4; Lymphocytes % 20.1; MCH 32.2 pg (27.0-33.0); MCHC 33.9 % (32.0-36.0); MCV 95 fL (80-95); MPV 10.5 fL (8.0-11.0); Monocytes % 5.7; Neutrophils % 69.8; Platelet Count 171 10^3/uL (130-400); RBC 3.95 10^6/uL (3.93-5.22); RDW 11.9 % (11.7-14.6); RDW-SD 41.3 fL; WBC 7.53 10^3/uL (4.4-10.8)
[2023-07-19] MEDS: Omnipaque 350 MG/ML 100 ML BTL IJ (10:01)
[2023-07-19] MEDS: Normal Saline - Diluent 50 ML VIAL IJ (10:02)
[2023-07-19] MEDS: Ketorolac 15 MG/ML VIAL IVP (10:03)
[2023-07-19] MEDS: ACETAMINOPHEN 1,000 MG/100 ML BTL 400 MG IVPB (10:04)
[2023-07-19] MEDS: Normal Saline Flush 10 ML SYR IJ (10:06)
[2023-07-19 10:16] LABS: ALT 26 U/L (14-59); AST 19 U/L (15-37); Alkaline Phosphatase 54 U/L (46-116); Anion Gap 10.3 mmol/L (3-11); BUN 19 mg/dL (7-18); Bilirubin, Total 0.8 mg/dL (0.2-1.0); CO2 25.7 mmol/L (21.0-32.0); CREATININE 0.9 mg/dL (0.55-1.02); Calcium 9.1 mg/dL (8.5-10.1); Chloride 103 mmol/L (98-107); Glucose 96 mg/dL (74-106); HCG Quant, Pregnancy < 1 mIU/mL (1-3); Potassium 3.7 mmol/L (3.5-5.1); Sodium 139 mmol/L (136-145); Total Protein 7.3 g/dL (6.4-8.2)
[2023-07-19 10:33] LABS: Bilirubin Negative (Negative); Blood Trace-intact (Negative); Clarity Clear (Clear); Glucose Negative (Negative); Ketones Negative (Negative); Leukocyte Esterase Trace (Negative); Nitrite Negative (Negative); Urobilinogen 0.2 mg/dL (Up to 0.2)
[2023-07-19 10:43] LABS: Bacteria Rare HPF (Negative); C & S Indicated? No/Sq. Contamination; Casts Negative LPF (Negative); Crystals Negative HPF (Negative); Epithelial Cells Moderate HPF (Negative); Mucus Negative (Negative); RBC 0-2 HPF (0-2)
--- NOTE | 2023-07-19 11:03 | DI.VRAD_ITS ---
Addendum created by Frankie Conley MD on 07/19/2023 11:05:39 AM EST: ADDENDUM: THIS REPORT CONTAINS FINDINGS THAT MAY BE CRITICAL TO PATIENT CARE. The findings were verbally communicated via telephone conference with DR. KT SYED at 11:04 AM EST on 07/19/2023. The findings were acknowledged and understood. Initial report created on 07/19/2023 11:02:30 AM EST: PROCEDURE INFORMATION: Exam: CT Abdomen And Pelvis With Contrast Exam date and time: 07/19/2023 10:27 AM Age: 37 years old Clinical indication: Abdominal pain; Localized; Right lower quadrant (rlq); Patient HX: Rlq pain, ? appendicitis TECHNIQUE: Imaging protocol: Computed tomography of the abdomen and pelvis with contrast. COMPARISON: US PELVIS TRANSVAGINAL 05/13/2023 8:48 AM FINDINGS: Liver: No acute abnormality or suspicious hepatic mass. Gallbladder and bile ducts: Status post cholecystectomy. No biliary duct dilation. Pancreas: No acute abnormality or obvious pancreatic duct dilation. Spleen: Normal size; no suspicious masses. Adrenal glands: No suspicious adrenal masses. Kidneys and ureters: Symmetric renal parenchymal enhancement without obvious hydronephrosis and no urinary tract calculus. Stomach and bowel: No evidence of gastric outlet obstruction or bowel obstruction. Appendix: Retrocolic appendix in the right lower quadrant measures approximately 9 mm diameter and shows subtle wall thickening. Intraperitoneal space: No free intraperitoneal air, significant ascites, or localized fluid collections. Vasculature: Abdominal aorta and major visceral arteries have normal caliber. SMV, splenic vein, and portal vein are patent. No pelvic DVT detected. Lymph nodes: No enlarged lymph nodes. Urinary bladder: No significant bladder wall thickening. Reproductive: Presumed small physiologic cysts within each ovary. Gonadal veins are patent. Bones/joints: No acute fracture. Soft tissues: Unremarkable. IMPRESSION: Findings are suggestive of very early/mild appendicitis. No other evidence of acute abnormality identified within the abdomen or pelvis. Dictated and Authenticated by: Frankie Conley MD. Ordering:SHANTI Solorio MD
[2023-07-19] MEDS: PIPERACILLIN/TAZO 4.5 GM in Normal Saline 100 ML IVPB (11:28)
--- NOTE | 2023-07-19 13:24 | SCONE_ITS ---
Date of service: 07/19/23 Time of Service: 13:24 Assessment and Plan Assessment and plan (1) RLQ abdominal pain: Status: Acute Assessment and plan: Patient has some mild isolated right lower quadrant pain and a dilated appendix on CT. However there is no fat stranding or sign of inflammation/fluid collection/Elms abscess on CT. Her appendix is dilated, and she has some mild tenderness, but not what 1 would expect with an acute appendicitis. She notes that she is very hungry. She was recently vaccinated for COVID and has had COVID., Which could account for the dilation of the appendix. She does have some tenderness but not what I would expect with an acute appendicitis. At this point I do not feel she meets surgical criteria. We discussed observation in the hospital versus going home. She would prefer to go home. I recommend she stick with clear liquids today and avoid dairy products. I gave her very explicit instructions that if she should start having fever chills, nausea vomiting, and increasing pain she should return to the emergency room immediately. I would like to check a CBC in the morning and have her follow-up in clinic. Orders are placed. I discussed the case with Dr. Swartz as well This document was created with voice activated software and may contain errors. 60 mins spent with the patient today. (2) Chronic pelvic pain in female: Status: Acute (3) History of COVID-19: Status: Acute History of Present Illness Narrative: Patient is a 37-year-old white female who presents to the ER today complaining of right lower quadrant pain. She has a history of chronic pelvic pain that she has been seeing women's wellness and pelvic PT for. This pain in the right lower quadrant started last night. She did have a COVID- vaccine and COVID pretty much throughout the month of May. She has only had coffee with cream to eat today. She does admit to being very hungry. She has no fevers or chills. She has no nausea vomiting. She denies any trauma. She denies any travel. She denies any unusual foods. She denies any and other unusual activity. No one house else at home is ill. She did move her bowels today and it was normal for her. She has no urinary tract type symptoms. She has had her gallbladder out in the past. Currently she has mild/minimal pain over the right lower quadrant. She has no other constitutional symptoms. It does radiate down into the pelvis. Review of Systems All systems reviewed & are unremarkable except as noted in HPI and below PFSH All Active Problems (Updated 07/19/23 @ 13:25 by Sophia Mondragon DO) History of COVID-19 (Acute) Chronic pelvic pain in female (Acute) RLQ abdominal pain (Acute) Right ear pain (Acute) Gastritis (Acute) Bloating (Acute) Dystrophic nail (Chronic 11/18/17) Heartburn (Chronic 11/18/17) Hypertrophy of inferior nasal turbinate (Acute) Deviated nasal septum (Acute) Dry skin dermatitis (Acute) Allergic rhinitis due to allergen (Acute) Right hip pain (Acute) Right-sided chest pain (Acute) History of anal fissures (Acute) Medical History Dislocation of shoulder region H/O allergy to insect bites Rectocele (12/08/13) [facility] Surgical History History of shoulder surgery Hx of adenoidectomy tubes placed at that time at 5yrs old Hx of tonsillectomy MENISCUS REPAIR 07/10/11; LEFT KNEE RIGHT SHOULDER LABRAL REPAIR; 04/16/06 S/P laparoscopic cholecystectomy [place] teeth extracted Family History Mother Depression Alcohol abuse Diabetes Hyperlipidemia Father Hyperlipidemia Paternal Grandmother Lung cancer Brother History of substance abuse Sister Substance abuse Alcohol abuse Depression Sister No problems noted. Paternal Grandmother , 79 Lung cancer bilateral transplants Smoker Son No problems noted. Paternal Grandfather Hyperlipidemia Social History Smoking/Tobacco Use Status: Never Second Hand Exposure: Yes Smoking risk assessment performed?: Yes Alcohol Intake: current Alcohol Intake frequency: holidays/special occasions only Alcohol type: wine and hard liquor Drug use: Rarely Substance use type: marijuana Caregiver/Support person: No Household members: spouse Housing: apartment Communication Needs: Corrective Lenses Do you need help understanding health information?: Never current occupation: DENTAL HYGIENIST Pets and animals: Yes Pets and animals: cat(s) and dog(s) Sexually active: Yes Do you think of yourself as: straight/heterosexual Current gender identity: female What is your relationship status?: How often do you talk on the phone with friends or family?: once per week How often do you get together with friends or relatives?: once per week How often do you attend zoroastrianism or sabianism services?: decline to answer Do you belong to any clubs or organized social groups?: no Panel score (0-1 are the most socially isolated patients): 1 What type of physical activity do you participate in: walking Duration: 45-60 minutes/day Frequency: 3-4 times per week Roxanna/Catholic: Congregation Special roxanna needs: No Seatbelt use: always Helmet use: Yes Helmet use: always Drive intox or ride w/intox tractor trailer moving van driver: No Do you feel safe at home: Yes Do you feel safe in your relationship?: Yes Victim of physical abuse: No Victim of emotional abuse: Yes Victim of sexual abuse: No Would you like helpful sources: No Female Reproductive History Menstrual control method: other (partner with vasectomy) Exam Narrative Exam Narrative: PHYSICAL EXAM GENERAL APPEARANCE: Alert, healthy appearance, oriented, x 3,? in no acute distress HYDRATION: Well hydrated HEAD, EYES, EARS, NECK, THROAT: Head is normocephalic, pupils equal, round, reactive to light and accommodation, ocular movement intact, sclera clear and no jaundice. ?Dentition intact. No sore throat.? NECK: no lymphadenopathy.? Trachea midline.? Neck supple.? No JVD LUNGS: normal respiration/normal chest excursion. ?Clear to auscultation bilaterally. ?No wheeze. ?HEART: Regular rate and rhythm. no murmurs EXTREMITY: No edema or cyanosis.? no leg pain, redness, swelling.? ABDOMEN: soft Normal bowel sounds.? No hernias.? Minimal tenderness at McBurney's point. I can do deep palpation without eliciting any peritoneal signs. There is no guarding. There is no rebound. There is no Rovsing's. There is no obturator sign. Heel strike is negative. Results Last Vital Signs Temp 36.6 C 07/19/23 09:11 Pulse 58 L 07/19/23 11:16 Resp 18 07/19/23 09:11 BP 134/75 07/19/23 11:16 Pulse Ox 99 07/19/23 09:11 Labs 07/19/23 09:22 07/19/23 09:22 Labs: Laboratory Results - last 24 hr 07/19/23 07/19/23 09:22 10:15 WBC 7.53 RBC 3.95 Hgb 12.7 Hct 37.5 MCV 95 MCH 32.2 MCHC 33.9 RDW 11.9 Plt Count 171 MPV 10.5 Immature Gran % 0.4 Neutrophils % 69.8 Lymphocytes % 20.1 Monocytes % 5.7 Eosinophils % 3.3 Basophils % 0.7 Nucleated RBC % 0.0 Absolute Neutrophils 5.26 Absolute Lymphocytes 1.51 Absolute Monocytes 0.43 Absolute Eosinophils 0.25 Absolute Basophils 0.05 Sodium 139 Potassium 3.7 Chloride 103 Carbon Dioxide 25.7 Anion Gap 10.3 BUN 19 H Creatinine 0.9 Est GFR (CKD-EPI 2020) 85.50 Glucose 96 Calcium 9.1 Total Bilirubin 0.8 AST 19 ALT 26 Alkaline Phosphatase 54 Total Protein 7.3 Albumin 4.0 Beta HCG, Quant < 1 L Urine Color Yellow Urine Clarity Clear Urine pH 6.0 Ur Specific [place] 1.010 Urine Protein Negative Urine Ketones Negative Urine Blood Trace-intact H Urine Nitrite Negative Urine Bilirubin Negative Urine Urobilinogen 0.2 Ur Leukocyte Esterase Trace H Urine RBC 0-2 Urine WBC 5-10 Ur Epithelial Cells Moderate Urine Crystals Negative Urine Bacteria Rare Urine Casts Negative Urine Mucus Negative Ur Culture Indicated? No/Sq. Contamination Urine Glucose Negative
== END 2023-07-19 13:26 | disposition home or self-care (01) ==
PROVIDERS: Emergency Provider Student in an Organized Health Care Education/Training Program; PCP Nurse Practitioner Family
DX: R10.31 Right lower quadrant pain (principal); R10.2 Pelvic and perineal pain; G89.29 Other chronic pain; Z86.16 Personal history of COVID-19
CPT/HCPCS: 36415; 80053; 96365; 96367; 96375; 99285; 74177; 81003; 81015; 84702; 85025; 99284; J0131; J1885; J2543; J3490

== ENCOUNTER 2023-07-20 13:07 | Outpatient (CLI) | payer OTHER, SELFPAY ==
[2023-07-20 08:56] LABS: Abs Immature Grans 0.01 10^3/uL (0.0-0.06); Absolute Basophil Count 0.05 10^3/uL (0.0-0.2); Absolute Eosinophil Count 0.24 10^3/uL (0.0-0.7); Absolute Lymphocyte Count 1.48 10^3/uL (1.2-3.4); Absolute Monocyte Count 0.37 10^3/uL (0.1-0.8); Absolute Neutrophil Count 2.32 10^3/uL (1.2-6.7); Basophils % 1.1; Eosinophils % 5.4; HCT 37.7 % (36.0-46.0); HGB 12.5 g/dL (11.2-15.7); Immature Grans % 0.2; Lymphocytes % 33.1; MCH 32.2 pg (27.0-33.0); MCHC 33.2 % (32.0-36.0); MCV 97 fL (80-95); MPV 9.9 fL (8.0-11.0); Monocytes % 8.3; Neutrophils % 51.9; Platelet Count 174 10^3/uL (130-400); RBC 3.88 10^6/uL (3.93-5.22); RDW 12.1 % (11.7-14.6); RDW-SD 43.5 fL; WBC 4.47 10^3/uL (4.4-10.8)
[2023-07-20 09:17] LABS: C-Reactive Protein 1.78 mg/dL (0.0-0.3)
== END 2023-07-20 13:08 | disposition home or self-care (01) ==
LOC: LBO 13:08
PROVIDERS: PCP Nurse Practitioner Family; Visit Provider Surgery
DX: R10.31 Right lower quadrant pain (principal)
CPT/HCPCS: 36415; 85025; 86140

== ENCOUNTER 2023-09-02 02:50 | Outpatient (CLI) | payer OTHER, SELFPAY ==
[2023-09-02 09:41] LABS: Hemoglobin A1C 5.3 % (<5.7)
[2023-09-02 09:55] LABS: Calculated LDL 128 mg/dL (<100); Cholesterol 215 mg/dL (<200); HDL Cholesterol 75 mg/dL (40-60); Triglyceride 60 mg/dL (<150)
== END 2023-09-02 02:51 | disposition home or self-care (01) ==
PROVIDERS: PCP Nurse Practitioner Family; Visit Provider Nurse Practitioner Family
DX: Z13.220 Encounter for screening for lipoid disorders (principal); Z13.1 Encounter for screening for diabetes mellitus
CPT/HCPCS: 36415; 80061; 83036

== ENCOUNTER 2023-10-12 03:43 | Outpatient (CLI) | payer OTHER, SELFPAY ==
--- NOTE | 2023-10-12 | DI.RAD_ITS ---
Exam(s) XR CHEST 2V PA LATERAL EXAM: XR CHEST 2V PA LATERAL CLINICAL HISTORY: [id number],S/P COVID, COUGH, DYSPNEA TECHNIQUE: 2D digital imaging was performed. COMPARISON: No exams were available for comparison FINDINGS: HEART: Normal size. Aorta: Not dilated. PULMONARY VASCULATURE: Normal. LUNGS: Clear. PLEURAL SPACE: No pleural effusion or pneumothorax. BONE:Unremarkable for age. Soft tissues: Unremarkable. IMPRESSION: No acute abnormality. DATA REPOSITORY: RADIATION DOSE DELIVERED:
[2023-10-12] MEDS: Levalbuterol HFA 15 GM INH 4 PUFF IH (09:13)
[2023-10-12] MEDS: Inhaler, Assist Device 1 EACH MC (09:13)
--- NOTE | 2023-10-13 11:59 | W.PFT ---
Date of service: 10/12/23 Time of Service: 08:00 Pulmonary Function Test Result Indications: Dyspnea Interpretation Spirometry: There is no airflow limitation. No bronchodilator response. Lung Volumes: Normal lung volumes Diffusion Capacity: Normal diffusion Airway Pressure: Increased airways resistance Impression Normal pulmonary function with increased airways resistance which could indicate asthma. Clinical Correlation therefore is recommended.
== END 2023-10-12 03:44 | disposition home or self-care (01) ==
PROVIDERS: PCP Nurse Practitioner Family; Visit Provider Physician Assistant
DX: U09.9 Post COVID-19 condition, unspecified (principal); R06.00 Dyspnea, unspecified
CPT/HCPCS: 94060; 94726; 94729; 71046

== ENCOUNTER 2025-05-05 11:00 | Emergency (ER) | payer OTHER, SELFPAY ==
[2025-05-05 11:10] VITALS: BP 130/84; PULSE 60; RESP 18; TEMP 36.7; O2SAT 97
--- NOTE | 2025-05-05 11:45 | DI.RAD_ITS ---
Exam(s) XR HEEL RT OS CALCIS EXAM: XR HEEL RT OS CALCIS CLINICAL HISTORY: Stepped on ceramic plate with shard in heel. TECHNIQUE: 2D digital imaging was performed. Two images were obtained. COMPARISON: No exams were available for comparison FINDINGS: A BB was placed on the area of concern. BONES: No acute fracture is present. No bony destructive lesion is seen. There is a calcaneal spur present. JOINTS: No dislocation present. SOFT TISSUE: There is no radiopaque foreign body. IMPRESSION: No radiopaque foreign body. DATA REPOSITORY: RADIATION DOSE DELIVERED:
--- NOTE | 2025-05-05 11:48 | W.ED.GENAD ---
Discharge Plan Disposition Patient Disposition: Home Condition: Good Discharge Details Clinical Impression: Laceration of right heel Primary Care Provider: Sergio Castillo ED Provider: Doug Kulkarni Home Meds and New Rx's Prescriptions: No Action triamcinolone acetonide 0.5 % cream 1 applic TP BID PRN (Reason: dermatitis) Qty: 60 5RF multivitamin Tablet 1 tab PO DAILY ferrous sulfate 27 mg iron tablet 27 mg PO DAILY All Day Allergy (cetirizine) 10 mg capsule 10 mg PO DAILY PRN Discharge Instructions Instructions: Taking care of cuts, scrapes, and puncture wounds Additional Instructions: At this time there is no evidence of foreign body left in your heel. We have been able to removed all. Please apply triple antibiotic ointment and Band-Aids to the area daily. Keep the area dry and avoid soaking. If you notice any worsening of your symptoms, or any new symptoms such as vomiting, diarrhea, fever, chills, shortness of breath, chest pain, numbness, weakness, or fainting , please return immediately to the emergency department for reevaluation. Please follow up with your primary care provider as soon as possible for reassessment and reevaluation. As always, it was a pleasure participating in your medical care today. Referrals: Sergio Castillo, [employer] [Primary Care Provider, Medicine] [facility] General Date/Time Provider Initiated Documentation: 05/05/25 11:26. HPI Narrative: 39-year-old female with past medical history of an allergy to insect bites, presents today after stepping on show from a broken ceramic plate onto her right heel. It occurred hours ago. She had immediate pain. Her tetanus has been updated in the last 10 years. She came in for further assessment. No other complaints at this time. Related Data Home Medications ?Medication ?Instructions ?Recorded ?Confirmed triamcinolone acetonide 0.5 % 1 applic topical BID PRN 12/07/19 05/05/25 topical cream dermatitis #60 grams multivitamin 1 tab PO DAILY 07/23/22 05/05/25 cetirizine 10 mg capsule (All Day 10 mg PO DAILY PRN 11/04/22 05/05/25 Allergy (cetirizine)) ferrous sulfate 27 mg iron tablet 27 mg PO DAILY 05/06/23 05/05/25 Previous Rx's ?Medication ?Instructions ?Recorded triamcinolone acetonide 0.5 % 1 applic topical BID PRN 12/07/19 topical cream dermatitis #60 grams Allergies Allergy/AdvReac Type Severity Reaction Status Date / Time black flies Allergy Intermediate Swelling/Ed Uncoded 05/05/25 11:13 saadia NICKEL SULFATE Allergy Unknown RASH Uncoded 05/05/25 11:13 General Stated Complaint: Laceration JONATHAN: 3 Exam Narrative Exam Narrative: 1.Const: Well-nourished, Well-developed, appearing stated age 2.Eyes: PERRL, no conjunctival injection, and symmetrical lids. 3.ENT: Atraumatic external nose and ears. Moist MM. Neck: Symmetric, trachea midline, No thyromegaly. 4.CVS: +S1/S2, Peripheral pulses 2+ and equal in all extremities. Brisk capillary refill in all extremities. 5.RESP: Unlabored respiratory effort. Clear to auscultation bilaterally. No wheezes rales or rhonchi 6.GI: Soft, Nontender/Nondistended, No hepatosplenomegaly. No guarding or rebound. 7.MSK: Normocephalic/Atraumatic, Extremities w/o deformity or ttp No cyanosis or clubbing, Normal movement of all extremities 8.Skin: Warm, Dry. On the plantar aspect of the patient's right heel she demonstrates a small linear laceration about 5 mm wide, there appears to be a hard ceramic fragment present there. No other active bleeding. No other abnormalities 9.Neuro: tour operator II-XII grossly intact. Sensation grossly intact, no focal neurologic deficits. 10.Psych: (AAO) x3. Appropriate mood and affect Course Vital Signs Vital signs: Vital Signs Temperature 36.7 C 05/05/25 11:10 Pulse 60 05/05/25 11:10 Respiratory Rate 18 05/05/25 11:10 Blood Pressure 130/84 05/05/25 11:10 Pulse Oximetry 97 05/05/25 11:10 Temperature 36.7 C 05/05/25 11:10 Pulse 60 05/05/25 11:10 Respiratory Rate 18 05/05/25 11:10 Blood Pressure 130/84 05/05/25 11:10 Pulse Oximetry 97 05/05/25 11:10 Procedure Foreign Body Removal Date of Procedure: 05/05/25. Time of procedure: 11:52 Provider that performed the procedure: Doug Kulkarni Standard Time Out Performed: No Patient Consented: Verbally Ultrasound: Not used Location of procedure: Lower extremity/right side Indication: History of foreign body. Confirmed by: direct visualization. Sterility: Non Sterile. Local anesthetic: Lidocaine 1% and with epi. Amount of local anesthetic used(mL): 3. Technique: Irrigation, Manual removal and Removal with forceps. Irrigation: Yes Amount of irrigation: 3. Outcome: Sucessful Medical Decision Making 39-year-old female with past medical history of an allergy to insect bites, presents today after stepping on show from a broken ceramic plate onto her right heel. It occurred hours ago. She had immediate pain. Her tetanus has been updated in the last 10 years. She came in for further assessment. No other complaints at this time. Exam on the patient's right heel on the plantar aspect demonstrates evidence of a 5 mm linear laceration/slice with evidence of a small ceramic foreign body present there. The area was anesthetized, cleaned, and then the foreign body was removed. No other components noted on exam. Will get an x-ray to make sure no remaining foreign bodies are present. Patient's tetanus is up-to-date. Foreign body was removed, x-ray shows no residual foreign body. Triple antibiotic ointment was applied, bandage was placed. I have extensively reviewed the treatment plan and discharge instructions with the patient. I have addressed all patient concerns at this time. The patient was made aware of what symptoms to monitor for that would warrant a return to the emergency department. Discussed the plan with the patient, they demonstrate verbal understanding and agreement with our assessment and plan at this time. The documentation in this chart was dictated using [employer] dictation software. Please excuse any dictation errors. FINDINGS: A BB was placed on the area of concern. BONES: No acute fracture is present. No bony destructive lesion is seen. There is a calcaneal spur present. JOINTS: No dislocation present. SOFT TISSUE: There is no radiopaque foreign body. IMPRESSION: No radiopaque foreign body. PFSH All Active Problems (Updated 05/05/25 @ 12:24 by Doug Kulkarni DO) Laceration of right heel (Acute) Chronic pelvic pain in female (Acute) RLQ abdominal pain (Acute) Gastritis (Acute) Bloating (Acute) Dystrophic nail (Chronic 11/18/17) Heartburn (Chronic 11/18/17) Hypertrophy of inferior nasal turbinate (Acute) Deviated nasal septum (Acute) Dry skin dermatitis (Acute) Allergic rhinitis due to allergen (Acute) Right hip pain (Acute) Right-sided chest pain (Acute) History of anal fissures (Acute) Medical History (Updated 05/05/25 @ 12:24 by Doug Kulkarni DO) History of COVID-19 H/O allergy to insect bites Dislocation of shoulder region Rectocele (12/08/13) [facility] Surgical History S/P laparoscopic cholecystectomy Hx of tonsillectomy Hx of adenoidectomy tubes placed at that time at 5yrs old [place] teeth extracted History of shoulder surgery RIGHT SHOULDER LABRAL REPAIR; 04/16/06 MENISCUS REPAIR 07/10/11; LEFT KNEE Family History Mother Depression Alcohol abuse Diabetes Hyperlipidemia Father Hyperlipidemia Paternal Grandmother Lung cancer Brother History of substance abuse Sister Substance abuse Alcohol abuse Depression Sister No problems noted. Paternal Grandmother , 79 Lung cancer bilateral transplants Smoker Son No problems noted. Paternal Grandfather Hyperlipidemia Social History (Updated 07/29/23 @ 16:48 by Raine Joshi) Smoking/Tobacco Use Status: Never Second Hand Exposure: Yes Smoking risk assessment performed?: Yes Alcohol Intake: current Alcohol Intake frequency: holidays/special occasions only Alcohol type: wine and hard liquor Drug use: Occasionally Substance use type: marijuana Adopted: No Caregiver/Support person: No Household members: spouse Housing: apartment Number of Children: 1 Do you need help understanding health information?: Never current occupation: DENTAL HYGIENIST Pets and animals: Yes Pets and animals: cat(s) Sexually active: Yes Do you think of yourself as: straight/heterosexual Current gender identity: female What is your relationship status?: How often do you talk on the phone with friends or family?: once per week How often do you get together with friends or relatives?: once per week How often do you attend bahai or zoroastrian services?: decline to answer Do you belong to any clubs or organized social groups?: no Panel score (0-1 are the most socially isolated patients): 1 What type of physical activity do you participate in: walking and other Details: PT Duration: 60-90 minutes/day Frequency: 3-4 times per week Roxanna/Scientologist: [employer] Special roxanna needs: No Agree to transfusion: Yes Seatbelt use: always Helmet use: Yes Helmet use: always 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
[2025-05-05 12:47] VITALS: BP 106/61; PULSE 55; RESP 16; TEMP 37.1; O2SAT 98
== END 2025-05-05 12:50 | disposition home or self-care (01) ==
LOC: ER 12:43
PROVIDERS: Emergency Provider Student in an Organized Health Care Education/Training Program; PCP Nurse Practitioner Family
DX: S91.311A Laceration without foreign body, right foot, initial encounter (principal); W26.8XXA Contact with other sharp object(s), not elsewhere classified, initial encounter
CPT/HCPCS: 28190; 73650; J2004